=== PATIENT | female | born 1965 | race Caucasian/White ===

== ENCOUNTER → 2017-01-11 | Outpatient (CLI) | payer OTHER ==
--- NOTE | 2017-01-11 12:37 | RAD ---
Indication follow-up lung infiltrate one week ago. Frontal and lateral views of the chest were obtained. No recent examination of the chest is available. Comparison is made to the most recent examination available May 21, 2010. The heart and pulmonary vessels appear normal. The right lung appears clear. There is some minimal linear atelectasis or scar at the left lung base. A definite consolidated pneumonia is not seen. Significant pleural fluid is not seen. There is no pneumothorax. IMPRESSION: Minimal volume loss at the left lung base likely reflecting atelectasis or scar. A definite pneumonic infiltrate is not seen
== END | disposition home or self-care (01) ==
LOC: RAD 12:03
PROVIDERS: ATTEND Internal Medicine
DX: R91.8 Other nonspecific abnormal finding of lung field (principal)
CPT/HCPCS: 71020

== ENCOUNTER → 2017-02-09 | Outpatient (CLI) | payer OTHER ==
--- NOTE | 2017-02-09 16:31 | RAD ---
Pelvic x-rays Indication: Left hip pain radiating to left knee since fall 2.5 weeks ago Technique: AP pelvis and 2 views of the left hip joint Comparison: Study from 09/20/2013 Findings: No acute fracture or dislocation. SI joints within normal limits. No significant evidence of osteoarthritis of the hip joints. Impression: No acute findings.
== END | disposition home or self-care (01) ==
LOC: RAD 14:00
PROVIDERS: ATTEND Internal Medicine
DX: M25.552 Pain in left hip (principal); W19.XXXD Unspecified fall, subsequent encounter
CPT/HCPCS: 73502

== ENCOUNTER → 2017-08-23 | Outpatient (CLI) | payer OTHER | END | disposition home or self-care (01) | LOC: RT 08:06 | DX: G31.84 Mild cognitive impairment of uncertain or unknown etiology (principal) | CPT/HCPCS: 95816 ==

== ENCOUNTER → 2017-11-21 | Outpatient (CLI) | payer OTHER ==
[2017-11-21 12:49] LABS: ANION GAP 10 (6-14); BLOOD UREA NITROGEN 42 mg/dL (7-20); CARBON DIOXIDE 32 mmol/L (21-32); CHLORIDE 102 mmol/L (98-107); CREATININE 1.8 mg/dL (0.6-1.0); GFR 29.3; SODIUM 144 mmol/L (136-145)
[2017-11-21 13:13] LABS: POTASSIUM 2.8 mmol/L (3.5-5.1)
== END | disposition home or self-care (01) ==
LOC: LAB 12:11
DX: G43.709 Chronic migraine without aura, not intractable, without status migrainosus (principal)
CPT/HCPCS: 36415; 80051; 82565; 84520

== ENCOUNTER → 2017-11-21 | Outpatient (CLI) | payer OTHER ==
[2017-11-21 12:34] LABS: ADD MAN DIFF? NO
[2017-11-21 12:48] LABS: ANION GAP 9 (6-14); BASO % 0 % (0-3); BLOOD UREA NITROGEN 42 mg/dL (7-20); CALCIUM 8.8 mg/dL (8.5-10.1); CARBON DIOXIDE 32 mmol/L (21-32); CHLORIDE 102 mmol/L (98-107); CREATININE 1.8 mg/dL (0.6-1.0); EOS % 11 % (0-3); GFR 29.3; GLUCOSE 71 mg/dL (70-99); HEMOGLOBIN 10.1 g/dL (12.0-15.5); LYMPH # 2.2 x10^3/uL (1.0-4.8); LYMPH % 24 % (24-48); MEAN CORPUSCULAR HEMOGLOBIN 31 pg (25-35); MEAN CORPUSCULAR HGB CONC 34 g/dL (31-37); MEAN CORPUSCULAR VOLUME 91 fL (79-100); MONO # 0.5 x10^3/uL (0.0-1.1); MONO % 6 % (0-9); NEUT # 5.4 x10^3uL (1.8-7.7); NEUT % 59 % (31-73); PLATELET COUNT 444 x10^3/uL (140-400); RED BLOOD COUNT 3.32 x10^6/uL (3.50-5.40); RED CELL DISTRIBUTION WIDTH 14.6 % (11.5-14.5); SODIUM 143 mmol/L (136-145); WHITE BLOOD COUNT 9.1 x10^3/uL (4.0-11.0)
[2017-11-21 12:58] LABS: POTASSIUM 2.8 mmol/L (3.5-5.1)
== END | disposition home or self-care (01) ==
LOC: RAD 12:00
DX: M25.552 Pain in left hip (principal)
CPT/HCPCS: 36415; 73502; 80048; 85025

== ENCOUNTER → 2017-11-29 | Outpatient (CLI) | payer OTHER ==
[2017-11-29 14:16] LABS: ANION GAP 12 (6-14); BLOOD UREA NITROGEN 61 mg/dL (7-20); CALCIUM 9.6 mg/dL (8.5-10.1); CARBON DIOXIDE 32 mmol/L (21-32); CHLORIDE 98 mmol/L (98-107); CREATININE 2.1 mg/dL (0.6-1.0); GFR 24.5; GLUCOSE 108 mg/dL (70-99); POTASSIUM 3.1 mmol/L (3.5-5.1); SODIUM 142 mmol/L (136-145)
== END | disposition home or self-care (01) ==
LOC: LAB 13:23
DX: E87.6 Hypokalemia (principal); G43.709 Chronic migraine without aura, not intractable, without status migrainosus
CPT/HCPCS: 36415; 80048

== ENCOUNTER → 2017-12-15 | Outpatient (CLI) | payer OTHER ==
[2017-12-15 15:45] LABS: BASO # 0.1 x10^3/uL (0.0-0.2); BASO % 1 % (0-3); EOS # 0.3 x10^3/uL (0.0-0.7); EOS % 4 % (0-3); HEMATOCRIT 30.7 % (36.0-47.0); HEMOGLOBIN 10.1 g/dL (12.0-15.5); LYMPH # 1.8 x10^3/uL (1.0-4.8); LYMPH % 25 % (24-48); MEAN CORPUSCULAR HEMOGLOBIN 30 pg (25-35); MEAN CORPUSCULAR HGB CONC 33 g/dL (31-37); MEAN CORPUSCULAR VOLUME 90 fL (79-100); MONO # 0.6 x10^3/uL (0.0-1.1); MONO % 8 % (0-9); NEUT # 4.5 x10^3uL (1.8-7.7); NEUT % 62 % (31-73); PLATELET COUNT 339 x10^3/uL (140-400); RED CELL DISTRIBUTION WIDTH 13.8 % (11.5-14.5); WHITE BLOOD COUNT 7.2 x10^3/uL (4.0-11.0)
[2017-12-15 15:59] LABS: ALBUMIN/GLOBULIN RATIO 1.3 (1.0-1.7); CALCIUM 8.8 mg/dL (8.5-10.1); TOTAL BILIRUBIN 0.4 mg/dL (0.2-1.0); TOTAL PROTEIN 7.2 g/dL (6.4-8.2)
[2017-12-15 16:04] LABS: POTASSIUM 2.4 mmol/L (3.5-5.1)
== END | disposition home or self-care (01) ==
LOC: LAB 14:55
PROVIDERS: ATTEND Internal Medicine
DX: F34.1 Dysthymic disorder (principal); E87.6 Hypokalemia
CPT/HCPCS: 36415; 80053; 85025

== ENCOUNTER → 2018-01-05 | Outpatient (CLI) | payer OTHER ==
[2018-01-05 13:04] LABS: CALCIUM 8.8 mg/dL (8.5-10.1); CREATININE 2.5 mg/dL (0.6-1.0); GFR 20.1
[2018-01-05 13:24] LABS: POTASSIUM 2.7 mmol/L (3.5-5.1)
== END | disposition home or self-care (01) ==
LOC: LAB 12:20
PROVIDERS: ATTEND Internal Medicine
DX: N18.3 Chronic kidney disease, stage 3 (moderate) (principal); G43.709 Chronic migraine without aura, not intractable, without status migrainosus
CPT/HCPCS: 36415; 80048

== ENCOUNTER → 2018-01-19 | Outpatient (CLI) | payer OTHER | END | disposition home or self-care (01) | LOC: LAB 13:42 | PROVIDERS: ATTEND Internal Medicine | DX: E87.6 Hypokalemia (principal); M19.232 Secondary osteoarthritis, left wrist; G43.709 Chronic migraine without aura, not intractable, without status migrainosus; N18.3 Chronic kidney disease, stage 3 (moderate) | CPT/HCPCS: 36415; 84132 ==

== ENCOUNTER → 2018-03-05 | Outpatient (CLI) | payer OTHER ==
[2018-03-05 12:09] LABS: CREATININE 2.7 mg/dL (0.6-1.0); GFR 18.4; POTASSIUM 3.1 mmol/L (3.5-5.1)
== END | disposition home or self-care (01) ==
LOC: LAB 11:16
PROVIDERS: ATTEND Psychiatry & Neurology Neurology
DX: G43.709 Chronic migraine without aura, not intractable, without status migrainosus (principal)
CPT/HCPCS: 36415; 80051; 82565; 84520

== ENCOUNTER → 2018-03-09 | Outpatient (CLI) | payer OTHER ==
--- NOTE | 2018-03-14 17:58 | EEG ---
DATE OF SERVICE: 03/09/2018 ELECTROENCEPHALOGRAM NUMBER: [id number]. OBJECTIVE: This is a 52-year-old female patient with history of cognitive functional impairment and confusional episodes. EEG was requested to evaluate cerebral activity and help rule out seizure. METHODS: Twenty electrodes were applied according to the international 10-20 electrode placement system. EKG monitoring, hyperventilation, intermittent photic stimulation, monopolar and bipolar montages are routinely utilized. The record was obtained on a digital system with video monitoring. FINDINGS: 1. Background: The patient was recorded in the awake and drowsy states. No sleep state was recorded. The overall background amplitude is 10-30 microvolts. A posterior dominant rhythm of 8 Hz is observed. 2. Abnormalities: No specific epileptiform discharge or electrographic seizure is seen. No focal or diffuse slowing. 3. Activation: Hyperventilation was performed with good efforts and normal response. Intermittent photic stimulation was performed with photic driving. IMPRESSION: This electroencephalogram is a normal study for the awake and drowsy states. No sleep state was recorded. No focal, lateralizing, specific epileptiform discharge, or electrographic seizure is seen. CONG SOMERS MD DR: KING/eriberto JOB#: [id number] / [id number] JENNIFER
== END | disposition home or self-care (01) ==
LOC: RT 10:58
PROVIDERS: ATTEND Psychiatry & Neurology Neurology
DX: G31.84 Mild cognitive impairment of uncertain or unknown etiology (principal)
CPT/HCPCS: 95816

== ENCOUNTER → 2018-05-10 | Outpatient (CLI) | payer OTHER ==
[2018-05-10 17:11] LABS: FREE T4 1.07 ng/dL (0.76-1.46); THYROID STIM HORMONE (TSH) 2.5 uIU/mL (0.358-3.74)
== END | disposition home or self-care (01) ==
LOC: LAB 15:31
PROVIDERS: ATTEND Otolaryngology
DX: E05.90 Thyrotoxicosis, unspecified without thyrotoxic crisis or storm (principal)
CPT/HCPCS: 36415; 84132; 84439; 84443

== ENCOUNTER → 2018-05-11 | Outpatient (CLI) | payer OTHER ==
[2018-05-11 12:07] LABS: HEMATOCRIT 32.9 % (36.0-47.0); HEMOGLOBIN 11.2 g/dL (12.0-15.5); RED BLOOD COUNT 3.78 x10^6/uL (3.50-5.40)
[2018-05-11 12:23] LABS: ALBUMIN 3.9 g/dL (3.4-5.0); CALCIUM 9.4 mg/dL (8.5-10.1); CREATININE 1.7 mg/dL (0.6-1.0); GFR 31.3; MAGNESIUM 2.2 mg/dL (1.8-2.4); URIC ACID 6.9 mg/dL (2.6-6.0)
[2018-05-11 13:09] LABS: POTASSIUM 2.5 mmol/L (3.5-5.1)
[2018-05-11 16:30] LABS: BILIRUBIN,URINE NEGATIVE (NEG); CLARITY,URINE CLEAR; COLOR,URINE YELLOW; NITRITE,URINE NEGATIVE (NEG); PH,URINE 5.5; PROTEIN,URINE NEGATIVE (NEG-TRACE); UROBILINOGEN,URINE 0.2 mg/dL (0.2 mg/dL)
[2018-05-11 16:54] LABS: BACTERIA,URINE 0 /HPF (0-FEW); HYALINE CASTS, URINE OCCASIONAL /HPF; RBC,URINE 0 /HPF (0-2); SQUAMOUS EPITHELIAL CELL,UR OCC /LPF; WBC,URINE 20-40 /HPF (0-4)
[2018-05-12 07:26] LABS: CALCIUM PTH 9.4 mg/dL (8.7-10.2); CREATININE PTH 1.58 mg/dL (0.57-1.00); PTH INTACT 162 pg/mL (15-65)
== END | disposition home or self-care (01) ==
LOC: LAB 11:37
PROVIDERS: ATTEND Internal Medicine Nephrology
DX: I12.9 Hypertensive chronic kidney disease with stage 1 through stage 4 chronic kidney disease, or unspecified chronic kidney disease (principal); E11.22 Type 2 diabetes mellitus with diabetic chronic kidney disease; N18.3 Chronic kidney disease, stage 3 (moderate); N17.9 Acute kidney failure, unspecified; D63.1 Anemia in chronic kidney disease; E11.21 Type 2 diabetes mellitus with diabetic nephropathy; E55.9 Vitamin D deficiency, unspecified; Z79.1 Long term (current) use of non-steroidal anti-inflammatories (NSAID); Z79.899 Other long term (current) drug therapy; Z68.30 Body mass index [BMI] 30.0-30.9, adult
CPT/HCPCS: 36415; 80069; 81001; 82306; 82570; 83735; 83970; 84156; 84550; 85027; 87086

== ENCOUNTER → 2018-05-14 | Outpatient (CLI) | payer OTHER ==
[2018-05-14 10:58] LABS: ALBUMIN 4.1 g/dL (3.4-5.0); CALCIUM 9.3 mg/dL (8.5-10.1); CREATININE 2.1 mg/dL (0.6-1.0); GFR 24.5; PHOSPHORUS 4.4 mg/dL (2.6-4.7)
== END | disposition home or self-care (01) ==
LOC: LAB 10:08
DX: E87.6 Hypokalemia (principal)
CPT/HCPCS: 36415; 80069

== ENCOUNTER → 2018-05-28 | Outpatient (CLI) | payer OTHER ==
[~2018-05-28] MED LIST: ASPI-630 PO; CLOP75TA PO; CYCL10TA2 PO; ERGO500027 PO; HYDR12.58 PO; LORA1TAB PO; MUPI22OI2 TP; NITR0.4T22 SL; PANT20TA2 PO; POTA20TA82 PO; PRAV20TA2 PO; PROM25TA10 PO; REPA0.5T3 PO; TOPI200T6 PO; TORS20TA2 PO; TRAM50TA PO; VALS160T3 PO
[2018-05-28 17:01] LABS: ALBUMIN 3.9 g/dL (3.4-5.0); CALCIUM 8.8 mg/dL (8.5-10.1); CREATININE 1.9 mg/dL (0.6-1.0); GFR 27.5; PHOSPHORUS 4.3 mg/dL (2.6-4.7)
== END | disposition home or self-care (01) ==
LOC: LAB 16:18
PROVIDERS: ATTEND Internal Medicine
DX: E87.6 Hypokalemia (principal)
CPT/HCPCS: 36415; 80069

== ENCOUNTER 2018-06-14 18:01 | Emergency (ER) | payer OTHER ==
[~2018-06-14] VITALS: Ht 154.9 cm; Wt 76.7 kg
[2018-06-14 18:47] LABS: BASO # 0.1 x10^3/uL (0.0-0.2); BASO % 1 % (0-3); EOS # 0.2 x10^3/uL (0.0-0.7); EOS % 2 % (0-3); HEMATOCRIT 30.9 % (36.0-47.0); HEMOGLOBIN 10.3 g/dL (12.0-15.5); LYMPH # 1.5 x10^3/uL (1.0-4.8); LYMPH % 17 % (24-48); MEAN CORPUSCULAR HEMOGLOBIN 29 pg (25-35); MEAN CORPUSCULAR HGB CONC 33 g/dL (31-37); MEAN CORPUSCULAR VOLUME 88 fL (79-100); MONO # 0.5 x10^3/uL (0.0-1.1); MONO % 5 % (0-9); NEUT # 6.7 x10^3uL (1.8-7.7); NEUT % 75 % (31-73); PLATELET COUNT 355 x10^3/uL (140-400); RED BLOOD COUNT 3.53 x10^6/uL (3.50-5.40); RED CELL DISTRIBUTION WIDTH 13.9 % (11.5-14.5)
[2018-06-14 19:03] LABS: CALCIUM 9.2 mg/dL (8.5-10.1)
[2018-06-14] MEDS ORDERED: POTASSIUM CHLORIDE 20 MEQ TABLET.ER. PO ONE ×2 (19:45→20:00)
[2018-06-14 20:15] VITALS: BP 82/49
[2018-06-14 20:17] LABS: BILIRUBIN,URINE NEGATIVE (NEG); CLARITY,URINE CLOUDY; COLOR,URINE YELLOW; NITRITE,URINE NEGATIVE (NEG); PROTEIN,URINE NEGATIVE (NEG-TRACE); UROBILINOGEN,URINE 0.2 mg/dL (0.2 mg/dL)
--- NOTE | 2018-06-14 20:25 | PHYS DOC ---
Past Medical History Past Medical History: Diabetes-Type II, Hypertension Additional Past Medical Histor: Chronic Kidney Disease Past Surgical History: Appendectomy, Cholecystectomy, Hysterectomy, Tonsillectomy, Other Additional Past Surgical Histo: right arm fx with hardware Alcohol Use: None Drug Use: None Adult General Chief Complaint Chief Complaint: ABNORMAL LABS HPI HPI Patient is a 52 year old female with history of diabetes type 2, hypertension, renal failure, who presents today complaining of hypokalemia. Patient states her blood work was done this morning and the doctor called her informing her her potassium was 2.4. Patient denies any symptoms. PCP Review of Systems Review of Systems Constitutional: Denies fever or chills [] Eyes: Denies change in visual acuity, redness, or eye pain [] HENT: Denies nasal congestion or sore throat [] Respiratory: Denies cough or shortness of breath [] Cardiovascular: Reports hypokalemia. No additional information not addressed in HPI [] GI: Denies abdominal pain, nausea, vomiting, bloody stools or diarrhea [] : Denies dysuria or hematuria [] Musculoskeletal: Denies back pain or joint pain [] Integument: Denies rash or skin lesions [] Neurologic: Denies headache, focal weakness or sensory changes [] All other systems were reviewed and found to be within normal limits, except as documented in this note. Current Medications Current Medications Current Medications Medications (Trade) Dose Ordered Sig/Mau Start Time Stop Time Status Last Admin Dose Admin Potassium Chloride (Klor-Con) 40 meq 1X ONCE 06/14/18 20:00 06/14/18 20:01 DC 06/14/18 20:08 40 MEQ Allergies Allergies Allergies Coded Allergies Type Severity Reaction Last Updated Verified acetaminophen Allergy Severe Face Swelling 05/30/18 Yes gabapentin Allergy Severe Anaphalactic Shock 05/30/18 Yes morphine Allergy Severe Anaphalactic Shock 05/30/18 Yes oxycodone Allergy Severe Face Swelling 05/30/18 Yes metoprolol Allergy Mild Nausea 05/30/18 Yes Physical Exam Physical Exam Constitutional: Well developed, well nourished, no acute distress, non-toxic appearance. [] HENT: Normocephalic, atraumatic, bilateral external ears normal, oropharynx moist, no oral exudates, nose normal. [] Eyes: PERRLA, EOMI, conjunctiva normal, no discharge. [] Neck: Normal range of motion, no tenderness, supple, no stridor. [] Cardiovascular:Heart rate regular rhythm, no murmur [] Lungs & Thorax: Bilateral breath sounds clear to auscultation [] Abdomen: Bowel sounds normal, soft, no tenderness, no masses, no pulsatile masses. [] Skin: Warm, dry, no erythema, no rash. [] Back: No tenderness, no CVA tenderness. [] Extremities: No tenderness, no cyanosis, no clubbing, ROM intact, no edema. [] Neurologic: Alert and oriented X 3, normal motor function, normal sensory function, no focal deficits noted. [] Psychologic: Affect normal, judgement normal, mood normal. [] Current Patient Data Vital Signs Vital Signs Date Time Temp Pulse Resp B/P (MAP) Pulse Ox O2 Delivery O2 Flow Rate FiO2 06/14/18 18:12 98.3 97 20 113/67 (82) 100 Room Air 98.3 Lab Values Laboratory Tests Test 06/14/18 18:33 White Blood Count 9.0 x10^3/uL (4.0-11.0) Red Blood Count 3.53 x10^6/uL (3.50-5.40) Hemoglobin 10.3 g/dL (12.0-15.5) L Hematocrit 30.9 % (36.0-47.0) L Mean Corpuscular Volume 88 fL (79-100) Mean Corpuscular Hemoglobin 29 pg (25-35) Mean Corpuscular Hemoglobin Concent 33 g/dL (31-37) Red Cell Distribution Width 13.9 % (11.5-14.5) Platelet Count 355 x10^3/uL (140-400) Neutrophils (%) (Auto) 75 % (31-73) H Lymphocytes (%) (Auto) 17 % (24-48) L Monocytes (%) (Auto) 5 % (0-9) Eosinophils (%) (Auto) 2 % (0-3) Basophils (%) (Auto) 1 % (0-3) Neutrophils # (Auto) 6.7 x10^3uL (1.8-7.7) Lymphocytes # (Auto) 1.5 x10^3/uL (1.0-4.8) Monocytes # (Auto) 0.5 x10^3/uL (0.0-1.1) Eosinophils # (Auto) 0.2 x10^3/uL (0.0-0.7) Basophils # (Auto) 0.1 x10^3/uL (0.0-0.2) Sodium Level 144 mmol/L (136-145) Potassium Level 3.0 mmol/L (3.5-5.1) L Chloride Level 102 mmol/L (98-107) Carbon Dioxide Level 31 mmol/L (21-32) Anion Gap 11 (6-14) Blood Urea Nitrogen 55 mg/dL (7-20) H Creatinine 2.0 mg/dL (0.6-1.0) H Estimated GFR (Cockcroft-Gault) 26.0 Glucose Level 125 mg/dL (70-99) H Calcium Level 9.2 mg/dL (8.5-10.1) Laboratory Tests 06/14/18 18:33 Laboratory Tests 06/14/18 18:33 EKG EKG [] Radiology/Procedures Radiology/Procedures [] Course & Med Decision Making Course & Med Decision Making Pertinent Labs and Imaging studies reviewed. (See chart for details) This is a 52-year-old female patient presenting to the ED today for hypokalemia. Potassium was 2.4 done early this morning at the doctor's office. Potassium in the ED 3.0. Consulted with Dr. Davis, he requested we give patient 80 mEq of potassium PO and d/c to home f/u with him in the clinic. Discussed dietary k intake. Dragon Disclaimer Dragon Disclaimer This electronic medical record was generated, in whole or in part, using a voice recognition dictation system. Departure Departure Impression: Primary Impression: Hypokalemia Additional Impression: Chronic renal failure Disposition: HOME, SELF-CARE Condition: STABLE Referrals: SAMI DAVIS MD (PCP) follow up as soon as you can Patient Instructions: Hypokalemia Additional Instructions: You were evaluated for hypokalemia, your potassium is 3.0. We gave you potassium in the ED. Increase your dietary potassium intake including foods like bananas. Follow-up with your doctor in the next 1 week. Problem Qualifiers Additional Impression: Chronic renal failure Chronic kidney disease stage: unspecified stage Qualified Codes: N18.9 - Chronic kidney disease, unspecified KELLY WU UNINDENTURED APPRENTICE Jun 14, 2018:25
[2018-06-14 20:33] LABS: BACTERIA,URINE 0 /HPF (0-FEW); HYALINE CASTS, URINE OCCASIONAL /HPF; RBC,URINE 0 /HPF (0-2); SQUAMOUS EPITHELIAL CELL,UR OCC /LPF; WBC,URINE OCC /HPF (0-4)
== END 2018-06-14 20:41 | disposition home or self-care (01) ==
LOC: ER 18:01
DX: E87.6 Hypokalemia (principal); I12.9 Hypertensive chronic kidney disease with stage 1 through stage 4 chronic kidney disease, or unspecified chronic kidney disease; E11.22 Type 2 diabetes mellitus with diabetic chronic kidney disease; N18.9 Chronic kidney disease, unspecified; Z90.89 Acquired absence of other organs; Z90.710 Acquired absence of both cervix and uterus; Z90.49 Acquired absence of other specified parts of digestive tract; Z88.6 Allergy status to analgesic agent; Z88.5 Allergy status to narcotic agent; Z88.8 Allergy status to other drugs, medicaments and biological substances
CPT/HCPCS: 36415; 80048; 81001; 85025; 87086; 99284

== ENCOUNTER 2018-06-19 18:29 | Emergency (ER) | payer MEDICARE, OTHER ==
[~2018-06-19] VITALS: Ht 154.9 cm; Wt 74.8 kg
[2018-06-19 18:55] VITALS: BP 107/69
[2018-06-19 19:38] LABS: INFLUENZA A PATIENT POSITIVE (NEGATIVE); INFLUENZA B PATIENT NEGATIVE (NEGATIVE)
[2018-06-19] MEDS ORDERED: ONDA4TAB12 PO (20:22)
--- NOTE | 2018-06-19 20:23 | PHYS DOC ---
Past Medical History Past Medical History: Diabetes-Type II, Hypertension Additional Past Medical Histor: Chronic Kidney Disease Past Surgical History: Appendectomy, Cholecystectomy, Hysterectomy, Tonsillectomy, Other Additional Past Surgical Histo: right arm fx with hardware Alcohol Use: None Drug Use: None Adult General Chief Complaint Chief Complaint: FLU SYMPTOM HPI HPI Patient is a 52 year old male who presents to the emergency room with complaints of a fever, reactive cough, frequent nosebleeds, nausea, body aches, fatigue, and sore throat for the last week. Patient states the only thing she has been able to tolerate drinking Sprite. States that today she noticed that she started to have some diarrhea stools. Patient denies any vomiting, abdominal pain, back pain, dizziness, or syncope. She states that her primary care doctor sent him here for concerns of dehydration. Review of Systems Review of Systems Constitutional: Reports fever, chills, and body aches for the last week. Eyes: Denies discharge reports redness HENT: Denies ear pain; reports nasal congestion, runny nose, sore throat, frequent nosebleeds. Respiratory: Denies wheezing or shortness of breath; reports productive cough with clear blood streaked sputum [] Cardiovascular: Denies chest pain GI: Denies abdominal pain, or vomiting; reports nausea and diarrhea today Musculoskeletal: Reports body aches Integument: Denies rash or skin lesions [] Neurologic: Denies dizziness, focal weakness or sensory changes [] Allergies Allergies Allergies Coded Allergies Type Severity Reaction Last Updated Verified acetaminophen Allergy Severe Face Swelling 05/30/18 Yes gabapentin Allergy Severe Anaphalactic Shock 05/30/18 Yes morphine Allergy Severe Anaphalactic Shock 05/30/18 Yes oxycodone Allergy Severe Face Swelling 05/30/18 Yes metoprolol Allergy Mild Nausea 05/30/18 Yes Physical Exam Physical Exam Constitutional: Well developed, well nourished, no acute distress, ill appearing HENT: Normocephalic, atraumatic, bilateral external ears normal, oropharynx moist, moist mucous membranes, no oral exudates, nose normal. [] Eyes: PERRLA, conjunctiva injected, no discharge. [] Neck: Normal range of motion, no stridor. [] Cardiovascular:Heart rate regular rhythm, no murmur [] Lungs & Thorax: Bilateral breath sounds clear to auscultation [] Abdomen: Bowel sounds normal, soft, no tenderness, no masses, no pulsatile masses. [] Skin: Warm, dry, no erythema, no rash. [] Extremities: No cyanosis, ROM intact Neurologic: Alert and oriented X 3, normal motor function, normal sensory function, no focal deficits noted. [] Psychologic: Affect normal, judgement normal, mood normal. [] Current Patient Data Vital Signs Vital Signs Date Time Temp Pulse Resp B/P (MAP) Pulse Ox O2 Delivery O2 Flow Rate FiO2 06/19/18 18:55 99.2 68 18 107/69 (82) 99 Room Air 99.2 Lab Values Laboratory Tests Test 06/19/18 18:54 Influenza Type A Antigen Positive (NEGATIVE) Influenza Type B Antigen Negative (NEGATIVE) EKG EKG [] Radiology/Procedures Radiology/Procedures Influenza A was positive Orthostatic blood pressures were negative and patient remained asymptomatic[] Course & Med Decision Making Course & Med Decision Making Pertinent Labs and Imaging studies reviewed. (See chart for details) dx: Influenza a, diarrhea, nausea Prescription was written for [employer]. Patient was encouraged to increase clear fluids including water, broth, Jell-O, popsicles. Advised patient that influenza is a virus that typically last 7-10 days. Follow-up with primary care doctor if symptoms persist, return to the ER if symptoms worsen. Patient verbalized an understanding of home care, medications, follow-up, and return to ED instructions and was in agreement with the plan of care. [] Dragon Disclaimer Dragon Disclaimer This electronic medical record was generated, in whole or in part, using a voice recognition dictation system. Departure Departure Impression: Primary Impression: Influenza A Additional Impressions: Nausea Diarrhea Disposition: 01 HOME, SELF-CARE Condition: STABLE Referrals: SAMI HATHAWAY MD (PCP) Patient Instructions: Influenza A (H1N1), Nausea, Adult, [id number] Additional Instructions: Fill the prescription and use as directed. Increase clear fluids. Follow up with your primary care doctor if symptoms persist, return to the ER if symptoms worsen. Scripts Ondansetron (ONDANSETRON ODT) 4 Mg Tab.rapdis 1 TAB PO PRN Q6-8HRS PRN for NAUSEA/VOMITING, #16 TAB 0 Refills Prov: [employer]Y [employer]Y [employer] 06/19/18 Problem Qualifiers Additional Impressions: Diarrhea Diarrhea type: unspecified type Qualified Codes: R19.7 - Diarrhea, unspecified JUDY SPIVEY APRN Jun 19, 2018 20:23
== END 2018-06-19 20:27 | disposition home or self-care (01) ==
LOC: ER 18:29
DX: J10.1 Influenza due to other identified influenza virus with other respiratory manifestations (principal); R19.7 Diarrhea, unspecified; I12.9 Hypertensive chronic kidney disease with stage 1 through stage 4 chronic kidney disease, or unspecified chronic kidney disease; E11.22 Type 2 diabetes mellitus with diabetic chronic kidney disease; N18.9 Chronic kidney disease, unspecified; Z88.6 Allergy status to analgesic agent; Z88.5 Allergy status to narcotic agent; Z88.8 Allergy status to other drugs, medicaments and biological substances
CPT/HCPCS: 87804; 99283

== ENCOUNTER → 2018-07-17 | Outpatient (CLI) | payer OTHER ==
[2018-06-19 18:55] VITALS: BP 107/69
[~2018-07-17] MED LIST changes: +ONDA4TAB12 PO
--- NOTE | 2018-07-18 19:58 | EEG ---
DATE OF SERVICE: 07/17/2018 ELECTROENCEPHALOGRAM NUMBER: [id number]. OBJECTIVE: This is a 52-year-old female patient with history of cognitive impairment and seizure-like episodes. EEG was requested to help rule out seizure. METHODS: Twenty electrodes were applied according to the international 10-20 electrode placement system. EKG monitoring, hyperventilation, intermittent photic stimulation, monopolar and bipolar montages are routinely utilized. The record was obtained to a digital system with video monitoring. MEDICATION: Topamax. FINDINGS: 1. Background: The patient was recorded in the awake and drowsy states. No actual sleep state was recorded. The overall background amplitude is 10-30 microvolts. A posterior dominant rhythm of 8-10 Hz is observed. 2. Abnormalities: No specific epileptiform discharge or electrographic seizure is seen. No focal or diffuse slowing. 3. Activation: Hyperventilation was performed with good efforts and normal response. Intermittent photic stimulation was performed with photic driving. No specific epileptiform discharge or electrographic seizure induced by hyperventilation or intermittent photic stimulation. IMPRESSION: This electroencephalogram is a normal study for the awake and drowsy states. No actual sleep state was recorded. No focal, lateralizing, specific epileptiform discharge, or electrographic seizure is seen. CONG SOMERS MD DR: KING/eriberto JOB#: [id number] / [id number] JENNIFER
== END | disposition home or self-care (01) ==
LOC: RT 07:49
PROVIDERS: ATTEND Psychiatry & Neurology Neurology
DX: R41.89 Other symptoms and signs involving cognitive functions and awareness (principal)
CPT/HCPCS: 95816

== ENCOUNTER → 2018-07-31 | Outpatient (CLI) | payer OTHER ==
--- NOTE | 2018-07-31 13:10 | RAD ---
EXAM: Chest, 2 views. HISTORY: Pain from coughing. COMPARISON: 01/11/2017. FINDINGS: 2 views of the chest are obtained. There is no infiltrate, pleural effusion or pneumothorax. The heart is normal in size. There is internal fixation of a right humeral diaphyseal fracture. IMPRESSION: No acute pulmonary finding. Electronically signed by: Allegra Marks MD (07/31/2018 1:07 PM) [id number]
[2018-07-31 13:15] LABS: BASO # 0.1 x10^3/uL (0.0-0.2); BASO % 2 % (0-3); EOS # 0.3 x10^3/uL (0.0-0.7); EOS % 6 % (0-3); HEMATOCRIT 30.8 % (36.0-47.0); HEMOGLOBIN 10.1 g/dL (12.0-15.5); LYMPH # 1.1 x10^3/uL (1.0-4.8); LYMPH % 21 % (24-48); MEAN CORPUSCULAR HEMOGLOBIN 31 pg (25-35); MEAN CORPUSCULAR HGB CONC 33 g/dL (31-37); MEAN CORPUSCULAR VOLUME 93 fL (79-100); MONO # 0.5 x10^3/uL (0.0-1.1); MONO % 10 % (0-9); NEUT # 3.3 x10^3uL (1.8-7.7); NEUT % 62 % (31-73); PLATELET COUNT 338 x10^3/uL (140-400); RED CELL DISTRIBUTION WIDTH 18.1 % (11.5-14.5); WHITE BLOOD COUNT 5.4 x10^3/uL (4.0-11.0)
[2018-07-31 13:22] LABS: ALBUMIN 3.6 g/dL (3.4-5.0); CALCIUM 8.7 mg/dL (8.5-10.1); CREATININE 1.2 mg/dL (0.6-1.0); GFR 46.6; POTASSIUM 3.9 mmol/L (3.5-5.1); TOTAL BILIRUBIN 0.2 mg/dL (0.2-1.0); TOTAL PROTEIN 7.1 g/dL (6.4-8.2)
[2018-07-31 13:28] LABS: CHOLESTEROL/HDL RATIO 2.2
[2018-07-31 13:32] LABS: BILIRUBIN,URINE NEGATIVE (NEG); CLARITY,URINE CLEAR; COLOR,URINE YELLOW; NITRITE,URINE NEGATIVE (NEG); PH,URINE 6.5; PROTEIN,URINE NEGATIVE (NEG-TRACE); UROBILINOGEN,URINE 0.2 mg/dL (0.2 mg/dL)
[2018-07-31 13:43] LABS: SQUAMOUS EPITHELIAL CELL,UR FEW /LPF
[2018-07-31 13:44] LABS: BACTERIA,URINE FEW /HPF (0-FEW); RBC,URINE 0 /HPF (0-2)
[2018-07-31 22:13] LABS: CREAT RD UR 21.8 mg/dL (Not Estab.); MICRO CREAT RATIO <13.8 mg/g creat (0.0-30.0); MICROALB RD UR <3.0 ug/mL (Not Estab.)
[2018-07-31 23:10] LABS: HEMOGLOBIN A1C 4.9 % (4.8-5.6)
== END | disposition home or self-care (01) ==
LOC: LAB 12:36
PROVIDERS: ATTEND Internal Medicine
DX: R05 Cough (principal); R07.81 Pleurodynia
CPT/HCPCS: 36415; 71046; 80053; 80061; 81001; 82043; 82306; 82570; 83036; 84443; 85025

== ENCOUNTER → 2018-08-17 | Outpatient (CLI) | payer OTHER ==
--- NOTE | 2018-08-17 13:30 | RAD ---
MRI of the brain without contrast 08/17/2018 Clinical History: Cognitive impairment. Chronic migraines. Technique: Unenhanced T1-weighted sagittal and axial, T2-weighted axial and coronal and FLAIR, gradient echo and diffusion-weighted axial images of the brain were obtained. Findings: Comparison study is dated 12/16/2011. There is mild generalized parenchymal atrophy. Patchy and several small focal areas of increased signal intensity are seen within the periventricular and subcortical white matter of both cerebral hemispheres on the FLAIR and T2-weighted images consistent with areas of very mild small vessel ischemic disease. These have not significantly changed. No acute parenchymal abnormality is seen. No extra-axial fluid collection is seen. There is no MRI evidence of acute ischemia/infarction. Mild mucosal thickening is seen scattered throughout the paranasal sinuses. Normal flow voids are seen within the major vascular structures surrounding the brain parenchyma. Impression: No acute parenchymal abnormality is seen. Electronically signed by: John Vallejo MD (08/17/2018 1:28 PM) [facility]
== END | disposition home or self-care (01) ==
LOC: MRI 10:20
PROVIDERS: ATTEND Psychiatry & Neurology Neurology
DX: G31.84 Mild cognitive impairment of uncertain or unknown etiology (principal); G43.909 Migraine, unspecified, not intractable, without status migrainosus
CPT/HCPCS: 70551

== ENCOUNTER → 2018-08-24 | Outpatient (CLI) | payer OTHER ==
--- NOTE | 2018-08-24 15:12 | KCIC ---
Indication: Postmenopausal screening for osteoporosis. History of adult fracture and diabetes.. Bone Density: -BMD: (g/cm2) - AP Spine Total (L1-L4).......... 0.833. - Total left Hip................. 0.779. T-Score: - AP Spine Total (L1-L4)......... -1.9. - Total left Hip................. -1.3. Z-Score: - AP Spine Total (L1-L4).......... -0.9. - Total left Hip................. -0.7. World Health Organization criteria for BMD interpretation classify patients as Normal (T-score at or above -1.0), Osteopenic (T-score between -1.0 and -2.5), or Osteoporotic (T-score at or below -2.5). Impression: 1. AP Spine Total L1-L4--- osteopenia. 2. Total left Hip--- osteopenia. Electronically signed by: John Mendes MD (08/24/2018 3:09 PM) [facility]
== END | disposition home or self-care (01) ==
LOC: KCIC DEXA 11:48
PROVIDERS: ATTEND Internal Medicine Rheumatology
DX: M85.89 Other specified disorders of bone density and structure, multiple sites (principal); M81.0 Age-related osteoporosis without current pathological fracture; E11.9 Type 2 diabetes mellitus without complications
CPT/HCPCS: 77080

== ENCOUNTER 2018-08-28 08:24 | Outpatient (CLI) | payer OTHER ==
[2018-08-28 08:32] LABS: BASO # 0.1 x10^3/uL (0.0-0.2); BASO % 2 % (0-3); EOS # 0.5 x10^3/uL (0.0-0.7); EOS % 10 % (0-3); HEMATOCRIT 33.4 % (36.0-47.0); HEMOGLOBIN 10.9 g/dL (12.0-15.5); LYMPH # 1.4 x10^3/uL (1.0-4.8); LYMPH % 28 % (24-48); MEAN CORPUSCULAR HEMOGLOBIN 31 pg (25-35); MEAN CORPUSCULAR HGB CONC 33 g/dL (31-37); MEAN CORPUSCULAR VOLUME 95 fL (79-100); MONO # 0.4 x10^3/uL (0.0-1.1); MONO % 8 % (0-9); NEUT # 2.7 x10^3uL (1.8-7.7); NEUT % 52 % (31-73); PLATELET COUNT 283 x10^3/uL (140-400); RED BLOOD COUNT 3.53 x10^6/uL (3.50-5.40); RED CELL DISTRIBUTION WIDTH 15.2 % (11.5-14.5); WHITE BLOOD COUNT 5.1 x10^3/uL (4.0-11.0)
[2018-08-28 08:43] LABS: PROTHROMBIN TIME PATIENT 12.2 SEC (11.7-14.0)
[2018-08-28] MEDS ORDERED: LIDOCAINE WITH 8.4% SOD BICARB 3 ML DISP.SYRIN. INJ ONE (09:15)
[2018-08-28 10:08] VITALS: BP 133/77
[2018-08-28 10:57] LABS: CSF CLARITY CLEAR; CSF COLOR COLORLESS; CSF PROTEIN 41.4 mg/dL (15.0-45.0); CSF RBC COUNT 1 /cmm (Not Established); CSF WBC COUNT 0 /cmm (Not Established)
--- NOTE | 2018-08-28 11:50 | NUR ---
discharge paperwork reviewed with pt. Pt home with family
--- NOTE | 2018-08-28 15:28 | RAD ---
Examination: LUMBAR PUNCTURE History: HEADACHES
FLOURO TIME .5
1 FLOURO IMAGE SENT
OPENING PRESSURE 8
CLOSING PRESSURE 7
10CCS SPINAL FLUID REMOVED
6 CC LIDOCAINE Comparison/Correlation: None Findings: Risks and benefits of fluoroscopically guided lumbar puncture were discussed with the patient. Informed consent was obtained. Fluoroscopy was utilized for 0.5 minutes. Cleansing with Betadine was performed at the L4-5 level. Patient was in the ALBANIAN position. 6 cc 1 percent lidocaine was administered along the expected course of the thecal sac. A 22-gauge spinal needle was introduced into the L4-5 level. 10 cc clear CSF was withdrawn and placed in nearly equal quantity is in 4 vials. Opening CSF pressure of 8 mmHg noted. Closing CSF pressure of 7 mmHg noted. Impression: Successful lumbar puncture exam. CSF pressure is within normal limits. The patient tolerated the procedure well without immediate complications. Specimens sent to the lab. Electronically signed by: North Abel MD (08/28/2018 3:25 PM) [facility]
[2018-08-30 17:09] LABS: HERPES SIMPLEX TYPE 1 Negative (Negative); HERPES SIMPLEX TYPE 2 Negative (Negative)
[2018-09-06 09:19] LABS: VIRAL CULT FINAL No virus isolated. (.)
== END 2018-08-28 11:50 | disposition home or self-care (01) ==
LOC: RAD 08:24
PROVIDERS: ATTEND Psychiatry & Neurology Neurology
DX: G93.2 Benign intracranial hypertension (principal); I10 Essential (primary) hypertension; E11.9 Type 2 diabetes mellitus without complications; J45.909 Unspecified asthma, uncomplicated; Z88.6 Allergy status to analgesic agent; Z88.5 Allergy status to narcotic agent; Z88.8 Allergy status to other drugs, medicaments and biological substances; Z79.01 Long term (current) use of anticoagulants; Z79.82 Long term (current) use of aspirin; Z79.899 Other long term (current) drug therapy; Z79.84 Long term (current) use of oral hypoglycemic drugs
CPT/HCPCS: 36415; 62270; 77003; 82945; 84157; 85025; 85610; 87071; 87075; 87102; 87252; 87529; 89051

== ENCOUNTER → 2018-09-10 | Outpatient (CLI) | payer OTHER ==
[2018-08-28 10:08] VITALS: BP 133/77
[2018-09-10 12:01] LABS: ALBUMIN 3.8 g/dL (3.4-5.0); CALCIUM 9.2 mg/dL (8.5-10.1); CREATININE 1.6 mg/dL (0.6-1.0)
[2018-09-10 12:02] LABS: GFR 33.5; PHOSPHORUS 4.1 mg/dL (2.6-4.7); POTASSIUM 3.1 mmol/L (3.5-5.1)
[2018-09-11 02:08] LABS: CREATININE PTH 1.46 mg/dL (0.57-1.00); PHOSPHORUS PTH 3.9 mg/dL (2.5-4.5); PTH INTACT 86 pg/mL (15-65)
== END | disposition home or self-care (01) ==
LOC: LAB 11:20
PROVIDERS: ATTEND Internal Medicine Nephrology
DX: I12.9 Hypertensive chronic kidney disease with stage 1 through stage 4 chronic kidney disease, or unspecified chronic kidney disease (principal); E11.21 Type 2 diabetes mellitus with diabetic nephropathy; N18.3 Chronic kidney disease, stage 3 (moderate); Z68.30 Body mass index [BMI] 30.0-30.9, adult
CPT/HCPCS: 36415; 80069; 82306; 83970

== ENCOUNTER → 2018-10-31 | Outpatient (CLI) | payer MEDICARE, OTHER ==
[2018-10-31 16:43] LABS: BASO # 0.1 x10^3/uL (0.0-0.2); BASO % 1 % (0-3); EOS # 0.3 x10^3/uL (0.0-0.7); EOS % 4 % (0-3); HEMATOCRIT 36.9 % (36.0-47.0); HEMOGLOBIN 12.3 g/dL (12.0-15.5); LYMPH # 1.9 x10^3/uL (1.0-4.8); LYMPH % 21 % (24-48); MEAN CORPUSCULAR HEMOGLOBIN 30 pg (25-35); MEAN CORPUSCULAR HGB CONC 33 g/dL (31-37); MEAN CORPUSCULAR VOLUME 91 fL (79-100); MONO # 0.5 x10^3/uL (0.0-1.1); MONO % 5 % (0-9); NEUT # 6.1 x10^3uL (1.8-7.7); NEUT % 69 % (31-73); PLATELET COUNT 364 x10^3/uL (140-400); RED BLOOD COUNT 4.05 x10^6/uL (3.50-5.40); RED CELL DISTRIBUTION WIDTH 13.2 % (11.5-14.5); WHITE BLOOD COUNT 8.9 x10^3/uL (4.0-11.0)
--- NOTE | 2018-10-31 16:54 | RAD ---
Examination: 3 views of the right shoulder and 3 views of the right hand HISTORY: History of fall, pain COMPARISON: None available. FINDINGS: The humerus head is within the glenoid. Partially visualized plate and screw fixation of the proximal humerus is identified. The alignment of the metacarpophalangeal joints, interphalangeal grossly appears unremarkable. There is no acute fracture or dislocation identified. IMPRESSION: No acute osseous findings. Electronically signed by: Low Moore MD (10/31/2018 4:51 PM) [facility] [place]
--- NOTE | 2018-10-31 16:54 | RAD ---
Examination: 3 views of the right shoulder and 3 views of the right hand HISTORY: History of fall, pain COMPARISON: None available. FINDINGS: The humerus head is within the glenoid. Partially visualized plate and screw fixation of the proximal humerus is identified. The alignment of the metacarpophalangeal joints, interphalangeal grossly appears unremarkable. There is no acute fracture or dislocation identified. IMPRESSION: No acute osseous findings. Electronically signed by: Low Moore MD (10/31/2018 4:51 PM) [facility]
[2018-10-31 17:13] LABS: ALBUMIN 3.9 g/dL (3.4-5.0); ALBUMIN/GLOBULIN RATIO 1.1 (1.0-1.7); CALCIUM 9.1 mg/dL (8.5-10.1); CREATININE 1.4 mg/dL (0.6-1.0); POTASSIUM 3.2 mmol/L (3.5-5.1); TOTAL BILIRUBIN 0.2 mg/dL (0.2-1.0); TOTAL PROTEIN 7.3 g/dL (6.4-8.2)
[2018-10-31 17:20] LABS: CHOLESTEROL/HDL RATIO 2.8
[2018-11-01 01:12] LABS: CREAT RD UR 92.2 mg/dL (Not Estab.); MICRO CREAT RATIO <3.3 mg/g creat (0.0-30.0); MICROALB RD UR <3.0 ug/mL (Not Estab.)
[2018-11-01 09:14] LABS: HEMOGLOBIN A1C 5.7 % (4.8-5.6)
== END | disposition home or self-care (01) ==
LOC: LAB 15:50
PROVIDERS: ATTEND Internal Medicine
DX: M25.511 Pain in right shoulder (principal); M79.645 Pain in left finger(s); E11.42 Type 2 diabetes mellitus with diabetic polyneuropathy; E55.9 Vitamin D deficiency, unspecified
CPT/HCPCS: 36415; 73030; 73130; 80053; 80061; 82043; 82306; 82570; 83036; 84443; 85025

== ENCOUNTER → 2018-11-30 | Outpatient (CLI) | payer OTHER, MEDICARE ==
[2018-11-30 14:04] LABS: CALCIUM 8.9 mg/dL (8.5-10.1); CREATININE 1.2 mg/dL (0.6-1.0); GFR 46.6; POTASSIUM 3.4 mmol/L (3.5-5.1)
== END | disposition home or self-care (01) ==
LOC: LAB 13:14
PROVIDERS: ATTEND Internal Medicine
DX: I13.0 Hypertensive heart and chronic kidney disease with heart failure and stage 1 through stage 4 chronic kidney disease, or unspecified chronic kidney disease (principal); E11.22 Type 2 diabetes mellitus with diabetic chronic kidney disease; I50.32 Chronic diastolic (congestive) heart failure; N18.3 Chronic kidney disease, stage 3 (moderate); Z79.4 Long term (current) use of insulin
CPT/HCPCS: 36415; 80048

== ENCOUNTER → 2018-12-05 | Outpatient (CLI) | payer OTHER, MEDICARE ==
--- NOTE | 2018-12-05 12:46 | RAD ---
Bilateral lower extremity arterial duplex ultrasound 12/05/2018 INDICATION: Diabetes. Peripheral vascular disease. COMPARISON STUDY: None Discussion: Ultrasound evaluation of the major arteries of the bilateral lower extremity was performed including color Doppler imaging spectral analysis. No significant atherosclerotic vascular disease was identified. No visual flow limiting stenosis, occlusion, or aneurysm is seen. Normal waveform morphology and velocities are seen throughout the major arteries of the bilateral lower extremities. IMPRESSION: Normal sonographic appearance of the major arteries of the bilateral lower extremities. Electronically signed by: Cosme Rodriguez MD (12/05/2018 12:43 PM) [id number]
== END | disposition home or self-care (01) ==
LOC: US 15:57
PROVIDERS: ATTEND Internal Medicine
DX: I73.9 Peripheral vascular disease, unspecified (principal); K21.9 Gastro-esophageal reflux disease without esophagitis; I10 Essential (primary) hypertension; E55.9 Vitamin D deficiency, unspecified; E11.9 Type 2 diabetes mellitus without complications; Z79.82 Long term (current) use of aspirin; Z79.1 Long term (current) use of non-steroidal anti-inflammatories (NSAID); Z79.899 Other long term (current) drug therapy
CPT/HCPCS: 93925

== ENCOUNTER 2018-12-18 23:06 | Emergency (ER) | payer OTHER, MEDICARE ==
[~2018-12-18] VITALS: Ht 154.9 cm; Wt 78.0 kg
--- NOTE | 2018-12-18 23:25 | PHYS DOC ---
Past Medical History Past Medical History: Diabetes-Type II, Hypertension Additional Past Medical Histor: Chronic Kidney Disease Past Surgical History: Appendectomy, Cholecystectomy, Hysterectomy, Tonsillectomy, Other Additional Past Surgical Histo: right arm fx with hardware Alcohol Use: None Drug Use: None Adult General Chief Complaint Chief Complaint: HAND PROBLEM HPI HPI Patient is a 53 year old female with history of diabetes type 2, high blood pressure, who presents to the ED today complaining of right hand and right forearm injury, patient states she was closing a dog gate and her right hand and forearm got slammed by the gait. Review of Systems Review of Systems Constitutional: Denies fever or chills [] Musculoskeletal: Reports right hand and forearm injury Integument: Denies rash or skin lesions [] Neurologic: Denies headache, focal weakness or sensory changes [] All other systems were reviewed and found to be within normal limits, except as documented in this note. Current Medications Current Medications Current Medications Medications (Trade) Dose Ordered Sig/Mau Start Time Stop Time Status Last Admin Dose Admin Diphtheria/ Tetanus/Acell Pertussis (Boostrix) 0.5 ml STK-MED ONCE 12/19/18 00:21 12/19/18 00:21 DC Ketorolac Tromethamine (Toradol Im) 60 mg 1X ONCE 12/19/18 00:30 12/19/18 00:31 Lidocaine/Sodium Bicarbonate (Buffered Lidocaine 1%) 3 ml 1X ONCE 12/19/18 00:30 12/19/18 00:31 Allergies Allergies Allergies Coded Allergies Type Severity Reaction Last Updated Verified acetaminophen Allergy Severe Face Swelling 05/30/18 Yes gabapentin Allergy Severe Anaphalactic Shock 05/30/18 Yes morphine Allergy Severe Anaphalactic Shock 05/30/18 Yes oxycodone Allergy Severe Face Swelling 05/30/18 Yes hydrocodone Adverse Reaction Severe N/V 12/18/18 Yes zolpidem Adverse Reaction Intermediate NAUSEA 12/18/18 Yes metoprolol Adverse Reaction Mild Nausea 12/18/18 Yes Physical Exam Physical Exam Constitutional: Well developed, well nourished, no acute distress, non-toxic appearance. [] Skin: Warm, dry, no erythema, no rash. [] Back: No tenderness, no CVA tenderness. [] Extremities: Right dorsal is to follow-up with moderate soft tissue swelling and bruising, right hand around the index finger middle finger and ring finger knuckles with mild soft tissue swelling and bruising. There is multiple superficial lacerations along the right hand index finger and middle finger. Right index finger proximal end distal aspect with another laceration approximately 1 cm. Pressure dressing applied to the area. No obvious tendon injury to all the lacerations. Patient able to move the right hand and fingers. Adequate radial, medial, ulnar sensation to the right hand. Cap refill less than 2 seconds the right fingers. Neurologic: Alert and oriented X 3, normal motor function, normal sensory function, no focal deficits noted. [] Psychologic: Affect normal, judgement normal, mood normal. [] Current Patient Data Vital Signs Vital Signs Date Time Temp Pulse Resp B/P (MAP) Pulse Ox O2 Delivery O2 Flow Rate FiO2 12/18/18 23:14 98.4 100 20 116/65 (82) 96 Room Air 98.4 EKG EKG [] Radiology/Procedures Radiology/Procedures []PROCEDURE: FOREARM RIGHT Exam: Right forearm 2 views. Right hand 3 views INDICATION: Trauma TECHNIQUE: Frontal and lateral views of the right forearm. Frontal, lateral and oblique views of the right hand Comparisons: None FINDINGS: Forearm: Extensive soft tissue swelling along the dorsal aspect of the distal forearm. Bone mineralization is normal. No acute or healed fractures. Joint spaces are well-maintained. Right hand: Soft tissue irregularity along the radial aspect of the second digit at the level of the proximal phalanx. No radiopaque foreign body. No acute fracture. Interphalangeal joints are narrowed diffusely. IMPRESSION: 1. Extensive soft tissue swelling along the dorsal aspect of the distal right forearm. No underlying osseous abnormality. 2. Soft tissue irregularity along the radial aspect of the second digit at the level of the proximal phalanx. No radiopaque foreign body or acute osseous abnormality identified. Electronically signed by: Ruben Villanueva MD (12/18/2018 11:52 PM) [facility] DICTATED and SIGNED BY: RUBEN VILLANUEVA MD DATE: 12/18/18 2197 PROCEDURE: HAND RIGHT 3V Exam: Right forearm 2 views. Right hand 3 views INDICATION: Trauma TECHNIQUE: Frontal and lateral views of the right forearm. Frontal, lateral and oblique views of the right hand Comparisons: None FINDINGS: Forearm: Extensive soft tissue swelling along the dorsal aspect of the distal forearm. Bone mineralization is normal. No acute or healed fractures. Joint spaces are well-maintained. Right hand: Soft tissue irregularity along the radial aspect of the second digit at the level of the proximal phalanx. No radiopaque foreign body. No acute fracture. Interphalangeal joints are narrowed diffusely. IMPRESSION: 1. Extensive soft tissue swelling along the dorsal aspect of the distal right forearm. No underlying osseous abnormality. 2. Soft tissue irregularity along the radial aspect of the second digit at the level of the proximal phalanx. No radiopaque foreign body or acute osseous abnormality identified. Electronically signed by: Ruben Villanueva MD (12/18/2018 11:52 PM) [facility] DICTATED and SIGNED BY: RUBEN VILLANUEVA MD DATE: 12/18/18 5688 Laceration/Wound Repair Wound Location: Right index finger laceration Wound's Depth, Shape: n shape Wound Length (cm): Approximately 1 cm Wound Explored: clean Irrigated w/ Saline (ccs): 250 Betadine Prep?: Yes Anesthesia: 1% buffered lidocaine Volume Anesthetic (ccs): Approximately 2 mL Wound Repaired With: Dissolvable gut Suture Size/Type: 5.0/interrupted sutures Number of Sutures: 4 Progress- wound was covered with nonstick dressing Course & Med Decision Making Course & Med Decision Making Pertinent Labs and Imaging studies reviewed. (See chart for details) This is a 53-year-old female patient who presents to the ED today with right upper extremity injury. Patient's right hand and right forearm got slammed by a dog gate she has a couple lacerations that appear superficial on the right dorsal hand. Right hand and right forearm x-rays interpreted by radiologist were noted for extensive soft tissue swelling otherwise no acute findings. Right index finger laceration was closed by me as noted in procedures. Wound care instructions and return precautions provided. Tetanus updated. Dragon Disclaimer Dragon Disclaimer This electronic medical record was generated, in whole or in part, using a voice recognition dictation system. Departure Departure Impression: Primary Impression: Contusion of right hand Additional Impressions: Contusion of right forearm Laceration of right hand Laceration of right index finger Disposition: 01 HOME, SELF-CARE Condition: STABLE Referrals: SAMI HATHAWAY MD (PCP) Follow-up with your doctor in 1-2 weeks Patient Instructions: Contusion, [id number], Laceration Care, Adult Additional Instructions: You were evaluated in the emergency room for an injury to the right upper extremity. Your right index finger laceration was closed with dissolvable stitches, they will fall off on their own. Apply Neosporin to the area twice a day. Monitor the area for any signs of infection including but not limited to increased redness, warmth, yellow drainage from the area and return to the ED if they occur. Keep the affected extremity iced and elevated for the next 48 hours as tolerated. Problem Qualifiers Primary Impression: Contusion of right hand Encounter type: initial encounter Qualified Codes: S60.221A - Contusion of right hand, initial encounter Additional Impressions: Contusion of right forearm Encounter type: initial encounter Qualified Codes: S50.11XA - Contusion of right forearm, initial encounter Laceration of right hand Encounter type: initial encounter Foreign body presence: without foreign body Qualified Codes: S61.411A - Laceration without foreign body of right hand, initial encounter Laceration of right index finger Encounter type: initial encounter Damage to nail status: without damage Foreign body presence: unspecified Qualified Codes: S61.210A - Laceration without foreign body of right index finger without damage to nail, initial encounter KELLY WU [employer] Dec 18, 2018 23:25
--- NOTE | 2018-12-18 23:56 | RAD ---
Exam: Right forearm 2 views. Right hand 3 views INDICATION: Trauma TECHNIQUE: Frontal and lateral views of the right forearm. Frontal, lateral and oblique views of the right hand Comparisons: None FINDINGS: Forearm: Extensive soft tissue swelling along the dorsal aspect of the distal forearm. Bone mineralization is normal. No acute or healed fractures. Joint spaces are well-maintained. Right hand: Soft tissue irregularity along the radial aspect of the second digit at the level of the proximal phalanx. No radiopaque foreign body. No acute fracture. Interphalangeal joints are narrowed diffusely. IMPRESSION: 1. Extensive soft tissue swelling along the dorsal aspect of the distal right forearm. No underlying osseous abnormality. 2. Soft tissue irregularity along the radial aspect of the second digit at the level of the proximal phalanx. No radiopaque foreign body or acute osseous abnormality identified. Electronically signed by: Ruben Sweeney MD (12/18/2018 11:52 PM) [facility]
[2018-12-19] MEDS ORDERED: DIPHTH,PERTUSS(ACELL),TET TOX 0.5 ML DISP.SYRIN. VAX IM ONE ×2 (00:21→00:30)
[2018-12-19] MEDS ORDERED: LIDOCAINE WITH 8.4% SOD BICARB 3 ML DISP.SYRIN. INJ ONE (00:30)
[2018-12-19] MEDS ORDERED: KETOROLAC 60 MG/2 ML VIAL. IM ONE (00:30)
[2018-12-19 00:33] VITALS: BP 116/65
== END 2018-12-19 00:40 | disposition home or self-care (01) ==
LOC: ER 23:06
DX: S61.210A Laceration without foreign body of right index finger without damage to nail, initial encounter (principal); S61.212A Laceration without foreign body of right middle finger without damage to nail, initial encounter; S50.11XA Contusion of right forearm, initial encounter; E11.22 Type 2 diabetes mellitus with diabetic chronic kidney disease; I12.9 Hypertensive chronic kidney disease with stage 1 through stage 4 chronic kidney disease, or unspecified chronic kidney disease; N18.9 Chronic kidney disease, unspecified; Z90.89 Acquired absence of other organs; Z90.49 Acquired absence of other specified parts of digestive tract; Z90.710 Acquired absence of both cervix and uterus; Z88.6 Allergy status to analgesic agent; Z88.5 Allergy status to narcotic agent; Z88.8 Allergy status to other drugs, medicaments and biological substances; W23.0XXA Caught, crushed, jammed, or pinched between moving objects, initial encounter; Y93.89 Activity, other specified; Y92.89 Other specified places as the place of occurrence of the external cause; Y99.8 Other external cause status
CPT/HCPCS: 12001; 73090; 73130; 90471; 90715; 96372; 99284; J1885

== ENCOUNTER → 2018-12-27 | Outpatient (CLI) | payer OTHER, MEDICARE ==
[2018-12-19 00:33] VITALS: BP 116/65
== END | disposition home or self-care (01) ==
LOC: LAB 12:24
PROVIDERS: ATTEND Psychiatry & Neurology Neurology
DX: E83.01 Wilson's disease (principal)
CPT/HCPCS: 36415; 82390; 82525; 84630

== ENCOUNTER → 2019-03-15 | Outpatient (CLI) | payer OTHER, MEDICARE ==
[~2019-03-15] MED LIST changes: -REPA0.5T3 PO; +REPA0.5T5 PO
[2019-03-15 12:45] LABS: CREATININE,RANDOM URINE 43.1 mg/dL (Not Establ.)
[2019-03-15 12:48] LABS: ALBUMIN 3.7 g/dL (3.4-5.0); CALCIUM 8.7 mg/dL (8.5-10.1); GFR 57.6; PHOSPHORUS 1.8 mg/dL (2.6-4.7)
[2019-03-15 12:53] LABS: POTASSIUM 4.8 mmol/L (3.5-5.1)
[2019-03-16 03:08] LABS: CREAT RD UR 41.4 mg/dL (Not Estab.); MICRO CREAT RATIO 8.7 mg/g creat (0.0-30.0); MICROALB RD UR 3.6 ug/mL (Not Estab.)
== END | disposition home or self-care (01) ==
LOC: LAB 11:38
PROVIDERS: ATTEND Internal Medicine Nephrology
DX: N18.3 Chronic kidney disease, stage 3 (moderate) (principal); Z68.32 Body mass index [BMI] 32.0-32.9, adult
CPT/HCPCS: 36415; 80069; 82043; 82570; 84156

== ENCOUNTER → 2019-04-26 | Outpatient (CLI) | payer OTHER, MEDICARE ==
[~2019-04-26] MED LIST changes: +POTA20TA4 PO; -POTA20TA82 PO
[2019-04-26 13:29] LABS: CALCIUM 9.3 mg/dL (8.5-10.1); CREATININE 1.5 mg/dL (0.6-1.0); GFR 36.1; PHOSPHORUS 3.1 mg/dL (2.6-4.7); POTASSIUM 3.6 mmol/L (3.5-5.1)
== END | disposition home or self-care (01) ==
LOC: LAB 12:16
PROVIDERS: ATTEND Internal Medicine Nephrology
DX: N17.9 Acute kidney failure, unspecified (principal); I12.9 Hypertensive chronic kidney disease with stage 1 through stage 4 chronic kidney disease, or unspecified chronic kidney disease; N18.3 Chronic kidney disease, stage 3 (moderate); E11.21 Type 2 diabetes mellitus with diabetic nephropathy; E11.22 Type 2 diabetes mellitus with diabetic chronic kidney disease; E87.6 Hypokalemia; E83.30 Disorder of phosphorus metabolism, unspecified; D50.9 Iron deficiency anemia, unspecified; M81.0 Age-related osteoporosis without current pathological fracture; Z68.34 Body mass index [BMI] 34.0-34.9, adult
CPT/HCPCS: 36415; 80069

== ENCOUNTER → 2019-05-24 | Outpatient (CLI) | payer OTHER, MEDICARE ==
[2019-05-24 13:19] LABS: ALBUMIN 3.6 g/dL (3.4-5.0); CALCIUM 9.4 mg/dL (8.5-10.1); CREATININE 1.2 mg/dL (0.6-1.0); GFR 46.6; PHOSPHORUS 3.3 mg/dL (2.6-4.7); POTASSIUM 3.4 mmol/L (3.5-5.1)
== END | disposition home or self-care (01) ==
LOC: LAB 12:17
PROVIDERS: ATTEND Internal Medicine Nephrology
DX: N17.9 Acute kidney failure, unspecified (principal); I12.9 Hypertensive chronic kidney disease with stage 1 through stage 4 chronic kidney disease, or unspecified chronic kidney disease; E11.22 Type 2 diabetes mellitus with diabetic chronic kidney disease; N18.3 Chronic kidney disease, stage 3 (moderate); E11.21 Type 2 diabetes mellitus with diabetic nephropathy; E87.6 Hypokalemia; D50.9 Iron deficiency anemia, unspecified; E55.9 Vitamin D deficiency, unspecified; M81.0 Age-related osteoporosis without current pathological fracture; I48.0 Paroxysmal atrial fibrillation; E83.30 Disorder of phosphorus metabolism, unspecified; Z68.34 Body mass index [BMI] 34.0-34.9, adult
CPT/HCPCS: 36415; 80069

== ENCOUNTER → 2019-05-30 | Outpatient (CLI) | payer OTHER, MEDICARE ==
[~2019-05-30] MED LIST changes: +IOHEXOL 240 MG/ML 50ML VIAL. PO ONE; +IOHEXOL 300 MG/ML 100ML VIAL. IV ONE
--- NOTE | 2019-05-30 14:59 | RAD ---
Examination: CT ABD PELV W/ORAL IV CONTRAST History: Acute diverticulitis, bladder fistula Comparison/Correlation: 05/13/2009 CT abdomen and pelvis with contrast Findings: Axial images of the abdomen and pelvis were obtained following IV and oral contrast. Sagittal and coronal reformatted images were provided. Slightly delayed axial images through the urinary bladder were obtained. Lung bases are clear. Liver, spleen, pancreas, and adrenal glands are normal. Cholecystectomy is evident. Right extrarenal pelvis is present. No hydronephrosis. No hydroureter. Urinary bladder is unremarkable. No enlarged abdominal or pelvic lymph nodes. Retroaortic left renal vein incidentally is seen. No extraluminal gas. No bowel obstruction. Moderate quantity of stool in the colon noted. Mild diverticulosis. Suture material or other opaque density noted involving the right iliac fossa superiorly. Appendix is not identified and this is consistent with history. Hysterectomy noted. Sacralization of the L5 vertebra is noted. Left inferior pubic ring deformity is evident. Correlate with prior trauma history. Impression: No inflammatory changes identified within the pelvis. Urinary bladder is unremarkable with no gas within it to suggest presence of a fistula. No inflammatory findings. Consider further evaluation to shows a persistent concern. Mild diverticulosis without acute inflammatory findings. PQRS Compliance Statement: One or more of the following individualized dose reduction techniques were utilized for this examination: 1. Automated exposure control 2. Adjustment of the mA and/or kV according to patient size 3. Use of iterative reconstruction technique Electronically signed by: North Abel MD (05/30/2019 2:57 PM) [facility]
== END | disposition home or self-care (01) ==
LOC: CT 10:41
PROVIDERS: ATTEND Internal Medicine
DX: K57.92 Diverticulitis of intestine, part unspecified, without perforation or abscess without bleeding (principal); N32.2 Vesical fistula, not elsewhere classified; Z90.49 Acquired absence of other specified parts of digestive tract
CPT/HCPCS: 74177; Q9966; Q9967

== ENCOUNTER → 2019-06-28 | Outpatient (CLI) | payer OTHER, MEDICARE ==
[~2019-06-28] MED LIST changes: -IOHEXOL 240 MG/ML 50ML VIAL. PO ONE; -IOHEXOL 300 MG/ML 100ML VIAL. IV ONE
[2019-06-28 13:24] LABS: CREATININE,RANDOM URINE 60.8 mg/dL (Not Establ.)
[2019-06-28 13:39] LABS: ALBUMIN 3.9 g/dL (3.4-5.0); CALCIUM 9.3 mg/dL (8.5-10.1); CREATININE 1.2 mg/dL (0.6-1.0); GFR 46.6; PHOSPHORUS 3.2 mg/dL (2.6-4.7); POTASSIUM 3.2 mmol/L (3.5-5.1)
[2019-06-28 22:07] LABS: CREATININE PTH 1.21 mg/dL (0.57-1.00); PHOSPHORUS PTH 3.2 mg/dL (3.0-4.3); PTH INTACT 64 pg/mL (15-65)
[2019-06-28 23:08] LABS: CREAT RD UR 60.3 mg/dL (Not Estab.); MICROALB RD UR 3.3 ug/mL (Not Estab.)
== END | disposition home or self-care (01) ==
LOC: LAB 12:41
PROVIDERS: ATTEND Internal Medicine Nephrology
DX: N17.9 Acute kidney failure, unspecified (principal); I12.9 Hypertensive chronic kidney disease with stage 1 through stage 4 chronic kidney disease, or unspecified chronic kidney disease; E11.22 Type 2 diabetes mellitus with diabetic chronic kidney disease; N18.3 Chronic kidney disease, stage 3 (moderate); E11.21 Type 2 diabetes mellitus with diabetic nephropathy; E87.6 Hypokalemia; D50.9 Iron deficiency anemia, unspecified; E55.9 Vitamin D deficiency, unspecified; M81.0 Age-related osteoporosis without current pathological fracture; I48.0 Paroxysmal atrial fibrillation; Z68.34 Body mass index [BMI] 34.0-34.9, adult
CPT/HCPCS: 36415; 80069; 82043; 82306; 82570; 83735; 83970; 84156

== ENCOUNTER → 2019-07-12 | Outpatient (CLI) | payer OTHER, MEDICARE ==
--- NOTE | 2019-07-15 13:43 | EEG ---
DATE OF SERVICE: 07/12/2019 EEG NUMBER: [id number]. OBJECTIVE: This is a 53-year-old female patient with history of memory decline or seizure-like episodes. EEG was requested to help rule out seizure. METHODS: Twenty electrodes were applied according to the international 10-20 electrode placement system. EKG monitoring, hyperventilation, intermittent photic stimulation, monopolar and bipolar montages are routinely utilized. The record was obtained on a digital system with video monitoring. FINDINGS: 1. Background: The patient was recorded in the awake, drowsy, and sleep states. The overall background amplitude is 5-15 microvolts. A posterior dominant rhythm of 8 Hz is observed. 2. Abnormalities: No specific epileptiform discharge or electrographic seizure is seen. No focal or diffuse slowing. 3. Activation: Hyperventilation was performed with fair efforts and normal response. Intermittent photic stimulation was performed with photic driving. No specific epileptiform discharge or electrographic seizure induced by hyperventilation or intermittent photic stimulation. IMPRESSION: This EEG is within the normal limits of the study for the awake, drowsy, and sleep states. No focal, lateralizing, specific epileptiform discharge or electrographic seizure is seen. CONG SOMERS MD DR: KING/eriberto JOB#: [id number] / [id number] JENNIFER
== END | disposition home or self-care (01) ==
LOC: RT 12:38
PROVIDERS: ATTEND Psychiatry & Neurology Neurology
DX: R41.3 Other amnesia (principal)
CPT/HCPCS: 95816

== ENCOUNTER → 2019-07-12 | Outpatient (CLI) | payer OTHER, MEDICARE ==
[2019-07-12 15:38] LABS: BILIRUBIN,URINE NEGATIVE (NEG); CLARITY,URINE CLEAR; COLOR,URINE YELLOW; NITRITE,URINE NEGATIVE (NEG); PH,URINE 6.5; PROTEIN,URINE NEGATIVE (NEG-TRACE); UROBILINOGEN,URINE 0.2 mg/dL (0.2 mg/dL)
[2019-07-12 15:41] LABS: BACTERIA,URINE 0 /HPF (0-FEW); RBC,URINE 0 /HPF (0-2); SQUAMOUS EPITHELIAL CELL,UR FEW /LPF
== END | disposition home or self-care (01) ==
LOC: LAB 14:59
PROVIDERS: ATTEND Internal Medicine Nephrology
DX: N17.9 Acute kidney failure, unspecified (principal); I12.9 Hypertensive chronic kidney disease with stage 1 through stage 4 chronic kidney disease, or unspecified chronic kidney disease; E11.22 Type 2 diabetes mellitus with diabetic chronic kidney disease; N18.3 Chronic kidney disease, stage 3 (moderate); E11.21 Type 2 diabetes mellitus with diabetic nephropathy; E87.6 Hypokalemia; E55.9 Vitamin D deficiency, unspecified; D50.9 Iron deficiency anemia, unspecified; M81.0 Age-related osteoporosis without current pathological fracture; I48.0 Paroxysmal atrial fibrillation; Z68.34 Body mass index [BMI] 34.0-34.9, adult
CPT/HCPCS: 81001; 87086

== ENCOUNTER → 2019-10-14 | Outpatient (CLI) | payer OTHER, MEDICARE ==
[2019-10-14 11:23] LABS: HEMATOCRIT 35.6 % (36.0-47.0); HEMOGLOBIN 11.9 g/dL (12.0-15.5)
[2019-10-14 11:31] LABS: ALBUMIN 3.8 g/dL (3.4-5.0); CALCIUM 8.9 mg/dL (8.5-10.1); CREATININE 1.2 mg/dL (0.6-1.0); GFR 46.5; MAGNESIUM 1.9 mg/dL (1.8-2.4); PHOSPHORUS 2.6 mg/dL (2.6-4.7)
[2019-10-14 11:40] LABS: POTASSIUM 2.9 mmol/L (3.5-5.1)
[2019-10-14 23:08] LABS: CALCIUM PTH 9.5 mg/dL (8.7-10.2); CREATININE PTH 1.13 mg/dL (0.57-1.00); PHOSPHORUS PTH 2.4 mg/dL (3.0-4.3); PTH INTACT 90 pg/mL (15-65)
== END | disposition home or self-care (01) ==
LOC: LAB 10:40
PROVIDERS: ATTEND Internal Medicine Nephrology
DX: I12.9 Hypertensive chronic kidney disease with stage 1 through stage 4 chronic kidney disease, or unspecified chronic kidney disease (principal); N18.3 Chronic kidney disease, stage 3 (moderate); D50.9 Iron deficiency anemia, unspecified; N17.9 Acute kidney failure, unspecified; E11.21 Type 2 diabetes mellitus with diabetic nephropathy; E87.6 Hypokalemia; E55.9 Vitamin D deficiency, unspecified; M81.0 Age-related osteoporosis without current pathological fracture; I48.0 Paroxysmal atrial fibrillation; Z68.34 Body mass index [BMI] 34.0-34.9, adult
CPT/HCPCS: 36415; 80069; 82306; 82728; 83540; 83550; 83735; 83970; 85014; 85018

== ENCOUNTER → 2019-11-22 | Outpatient (CLI) | payer OTHER, MEDICARE ==
[~2019-11-22] MED LIST changes: +ALBU2.5V8 IH; +AMLO5TAB10 PO; +LEVO25TA4 PO; +RIME75TA PO
[2019-11-22 16:19] LABS: CALCIUM 9.2 mg/dL (8.5-10.1); GFR 25.8; POTASSIUM 3.8 mmol/L (3.5-5.1)
== END | disposition home or self-care (01) ==
LOC: LAB 15:01
PROVIDERS: ATTEND Internal Medicine Nephrology
DX: I12.9 Hypertensive chronic kidney disease with stage 1 through stage 4 chronic kidney disease, or unspecified chronic kidney disease (principal); N18.3 Chronic kidney disease, stage 3 (moderate); N17.9 Acute kidney failure, unspecified; E11.21 Type 2 diabetes mellitus with diabetic nephropathy; E11.22 Type 2 diabetes mellitus with diabetic chronic kidney disease; E87.6 Hypokalemia; D50.9 Iron deficiency anemia, unspecified; M81.0 Age-related osteoporosis without current pathological fracture; I48.0 Paroxysmal atrial fibrillation; E83.30 Disorder of phosphorus metabolism, unspecified
CPT/HCPCS: 36415; 80048

== ENCOUNTER → 2019-12-13 | Outpatient (CLI) | payer OTHER, MEDICARE ==
[~2019-12-13] MED LIST changes: -ALBU2.5V8 IH; -AMLO5TAB10 PO; -LEVO25TA4 PO; -RIME75TA PO
== END ==
LOC: LAB 13:45
PROVIDERS: ATTEND Internal Medicine
DX: E87.6 Hypokalemia (principal)
CPT/HCPCS: 36415; 84132

== ENCOUNTER → 2020-01-03 | Outpatient (CLI) | payer OTHER, MEDICARE ==
[2020-01-03 13:37] LABS: CALCIUM 8.6 mg/dL (8.5-10.1); CREATININE 1.3 mg/dL (0.6-1.0); GFR 42.4; POTASSIUM 3.5 mmol/L (3.5-5.1)
== END ==
LOC: LAB 12:56
PROVIDERS: ATTEND Internal Medicine Nephrology
DX: E11.21 Type 2 diabetes mellitus with diabetic nephropathy (principal); E11.22 Type 2 diabetes mellitus with diabetic chronic kidney disease; N18.3 Chronic kidney disease, stage 3 (moderate); E87.6 Hypokalemia
CPT/HCPCS: 36415; 80048

== ENCOUNTER 2020-01-07 17:22 | Inpatient (IN) | payer OTHER, MEDICARE ==
[~2020-01-07] VITALS: Ht 154.9 cm; Wt 87.5 kg
[2020-01-07 17:45] VITALS: BP 120/76
[2020-01-07] MEDS ORDERED: LEVO25TA4 PO (18:10)
[2020-01-07] MEDS ORDERED: RIME75TA PO (18:10)
[2020-01-07] MEDS ORDERED: ALBU2.5V8 IH (18:10)
[2020-01-07] MEDS ORDERED: AMLO5TAB10 PO (18:10)
[2020-01-07] MEDS ORDERED: RIMEGEPANT SULFATE 75 MG PO PRN (18:45)
[2020-01-07] MEDS ORDERED: LORazepam 0.5 MG TABLET PO PRN (18:45)
[2020-01-07] MEDS ORDERED: ALBUTEROL SULFATE 2.5 MG/3 ML NEBU. INH PRN (18:45)
[2020-01-07 19:00] VITALS: BP 103/68
[2020-01-07] MEDS ORDERED: TOPIRAMATE 25 MG TABLET. PO SCH (19:00)
[2020-01-07] MEDS ORDERED: PROMETHAZINE 12.5 MG TABLET. PO PRN (19:00)
[2020-01-07 19:53] LABS: BASO # 0.1 x10^3/uL (0.0-0.2); BASO % 1 % (0-3); EOS # 0.3 x10^3/uL (0.0-0.7); EOS % 4 % (0-3); HEMATOCRIT 28.5 % (36.0-47.0); HEMOGLOBIN 9.6 g/dL (12.0-15.5); LYMPH # 1.2 x10^3/uL (1.0-4.8); LYMPH % 16 % (24-48); MEAN CORPUSCULAR HEMOGLOBIN 30 pg (25-35); MEAN CORPUSCULAR HGB CONC 34 g/dL (31-37); MEAN CORPUSCULAR VOLUME 89 fL (79-100); MONO # 0.5 x10^3/uL (0.0-1.1); MONO % 6 % (0-9); NEUT # 5.5 x10^3/uL (1.8-7.7); NEUT % 72 % (31-73); PLATELET COUNT 269 x10^3/uL (140-400); RED BLOOD COUNT 3.22 x10^6/uL (3.50-5.40); RED CELL DISTRIBUTION WIDTH 14.5 % (11.5-14.5); WHITE BLOOD COUNT 7.6 x10^3/uL (4.0-11.0)
[2020-01-07] MEDS: IV NORMAL SALINE 1000ML BAG 1,000 ML IV SCH (19:57)
[2020-01-07] MEDS: MUPIROCIN 2 % NASAL OINTMENT 22GM TUBE. TP SCH (19:59)
[2020-01-07 20:03] LABS: ALBUMIN 3.2 g/dL (3.4-5.0); ALBUMIN/GLOBULIN RATIO 1.1 (1.0-1.7); CALCIUM 8.5 mg/dL (8.5-10.1); CREATININE 1.3 mg/dL (0.6-1.0); GFR 42.4; POTASSIUM 3.4 mmol/L (3.5-5.1); TOTAL BILIRUBIN 0.3 mg/dL (0.2-1.0)
[2020-01-07] MEDS: ATORVASTATIN CALCIUM 10 MG TABLET. PO SCH (21:04)
[2020-01-07 21:13] LABS: BILIRUBIN,URINE NEGATIVE (NEG); CLARITY,URINE CLEAR; NITRITE,URINE NEGATIVE (NEG); PH,URINE 6.5 (<5.0-8.0); PROTEIN,URINE NEGATIVE (NEG-TRACE); UROBILINOGEN,URINE 0.2 mg/dL (0.2 mg/dL)
[2020-01-07 21:17] LABS: RBC,URINE 0 /HPF (0-2)
[2020-01-07 21:18] LABS: BACTERIA,URINE FEW /HPF (0-FEW); SQUAMOUS EPITHELIAL CELL,UR MOD /LPF
[2020-01-07 21:19] LABS: COLOR,URINE STRAW
[2020-01-07] MEDS: TOPIRAMATE 25 MG TABLET. PO SCH (21:22)
[2020-01-07 23:00] VITALS: BP_SYST 103; BP_SYST 158; BP_DIAS 68; BP_DIAS 79
[2020-01-08 03:00] VITALS: BP 110/71
[2020-01-08] MEDS: LEVOTHYROXINE 25 MCG TABLET. PO SCH (05:45)
[2020-01-08] MEDS: TOPIRAMATE 25 MG TABLET. PO SCH ×2 (05:46→21:12)
[2020-01-08 07:00] VITALS: BP 109/71
[2020-01-08] MEDS: INSULIN LISPRO 300 UNITS/3 ML VIAL. SQ SCH ×3 (08:00→17:00)
--- NOTE | 2020-01-08 08:58 | PDOC ---
Provider Note Date of Service: DATE: 01/08/20 TIME: 08:57 Provider Note Pt seen.H&P dictated.#[id number]. Justifications for Admission Other Justification SAMI HATHAWAY MD Jan 08, 2020 08:58
--- NOTE | 2020-01-08 09:26 | HP ---
ADMIT DATE: 01/08/2020 LOCATION: 510. REASON FOR ADMISSION TO THE HOSPITAL: Multiple falls over the weekend at least 4-5 times, generalized weakness, lethargy and decline in the patient's condition. HISTORY OF PRESENT ILLNESS: The patient is a 54-year-old female. The patient has a history of abnormal copper metabolism, Amarjit disease, has seen Dr. Parker in Neurology in the past and she also has anxiety, depression, has diabetes, hypertension, anemia, chronic kidney disease. She is usually ambulating with a cane. She has a couple of fractures last year on the shoulder and elbow. She looked pretty good, but she has been having more weakness recently. She fell 4-5 times over the weekend and she has been pretty lethargic. The patient was seen in the office, was admitted for further investigation and treatments. Probably, she may end up going to nursing home at a rehab. PAST MEDICAL HISTORY: As mentioned, she has a history of diabetes, hypertension, chronic kidney disease, anemia, Amarjit disease and early dementia. PAST SURGICAL HISTORY: Fracture of the right humerus. FAMILY HISTORY: For diabetes and heart disease in the grandparents. ALLERGIES: TO TYLENOL, GABAPENTIN, HYDROCODONE, METOPROLOL, MORPHINE, OXYCODONE, AMBIEN. MEDICATIONS AT HOME: The patient is taking cyclobenzaprine 20 mg at bedtime; lorazepam 1 mg at bedtime; albuterol ProAir 2 puffs 4 times daily; amlodipine 5 mg daily; aspirin 81 mg daily; Plavix 75 mg daily; vitamin D once a week 50,000; hydrochlorothiazide 12.5, levothyroxine 25 mcg daily; pantoprazole 40 mg daily; pravastatin 20 mg daily; promethazine for nausea. She is on Topamax 200 mg twice a day; Diovan 160 mg daily. She is on rimegepant 75 mg p.r.n. for migraines. PERSONAL HISTORY: Denies smoking, alcohol, drug abuse. FAMILY HISTORY: As above. PHYSICAL EXAMINATION: GENERAL: The patient has early-onset dementia, does not remember . VITAL SIGNS: Temperature 97, pulse 80, respirations 18, blood pressure 103/68, 95 on room air. HEENT: Head is atraumatic. Pupils equal. Oral cavity: No congestion. NECK: Supple. Thyroid not enlarged. JVD not elevated. CHEST: Symmetrical. CARDIOVASCULAR: S1, S2. LUNGS: Clear. ABDOMEN: Soft, bowel sounds present, no mass palpable. EXTERNAL GENITALIA: No Hernandez. RECTAL: Deferred. EXTREMITIES: No calf tenderness. No edema. The patient has bruising on the inner thigh, left, from falls. NEUROLOGICAL: The patient is oriented to place, person and not to the time. Moving upper and lower extremities, but weak in lower extremities. LABORATORY DATA: Shows a white count of 7, hemoglobin 9.6, platelets 269. Electrolytes show sodium 146, potassium 3.4, chloride 112, bicarb 25, BUN 27, creatinine 1.3, glucose 64. LFTs were normal. Urine was normal. CT head was ordered, but it was not done. Chest x-ray was not done. FINAL IMPRESSION: 1. Recurrent falls, especially her 4 falls over the weekend. The patient was lethargic in the office. 2. Amarjit disease. 3. Hypertension. 4. Hyperlipidemia. 5. Hypothyroidism. 6. Early-onset dementia. PLAN: At this time, was admitted to the hospital. Probably, needs Neurology as well as rehab. May end up going to other rehab unit or a nursing home until her strength improves. PT/OT and once we get the CT, if there is no bleeding, we can give Lovenox for DVT prevention. SAMI HATHAWAY MD DR: IVONNE/eriberto JOB#: [id number] / [id number]
--- NOTE | 2020-01-08 10:50 | PDOC2 ---
NEUROLOGY CONSULT Date of Service DOS: DATE: 01/08/20 TIME: 10:35 Reason for Consult Reason for Consult: Weakness and falls Referring Physician Referring Physician: Dr. Davis Source Source: Chart review, Patient History of Present Illness History of Present Illness The patient is a 54-year-old right-handed female who has had increasing weakness and falls. Dr. Parker has been following her for 8 years for migraine headaches. 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 Dr. Parker checked zinc copper, ceruloplasmin, on 12/27/18, these were normal. Patient has had a gradual decline in function, with development of tremors. The patient has never had a seizure, or head injury. She had a stroke in 2016. More recently the patient has seen my nurse practitioner, Ms. Verduzco. We have discussed the case and made a referral to neurology, appointment pending Past Medical History Cardiovascular: HTN, Hyperlipidemia CENTRAL NERVOUS SYSTEM: Migraine, Seizure, Other (Possible Amarjit's disease, left foot drop) Renal/: Chronic renal insuff, Urinary Incontinence Endocrine: Diabetes, Other ( thyroid nodule) Past Surgical History Past Surgical History: Cholecystectomy, Tonsillectomy, Hysterectomy, Other ( cyst removal from cost 6, left breast biopsy, liver biopsy, hand surgery times 5, dental surgery, right humerus fracture, cardiac catheterization, bladder surgery) Family History Family History: Cancer, Other ( hepatitis) Social History Social History /, no alcohol or tobacco, unemployed Current Medications Current Medications Current Medications Albuterol Sulfate (Ventolin Neb Soln) 2 mg PRN Q4HRS PRN INH wheezing; Start 01/07/20 at 18:45 Amlodipine Besylate (Norvasc) 5 mg DAILY PO ; Start 01/08/20 at 09:00 Aspirin (Aspirin Chewable) 81 mg DAILY PO ; Start 01/08/20 at 09:00 Clopidogrel Bisulfate (Plavix) 75 mg DAILY PO ; Start 01/08/20 at 09:00 Ergocalciferol (Vitamin D2) 50,000 unit WEEKLY PO ; Start 01/14/20 at 09:00 Levothyroxine Sodium (Synthroid) 25 mcg DAILY06 PO Last administered on 01/08/20at 05:45; Start 01/08/20 at 06:00 Mupirocin (Bactroban) 1 lyndsey BID TP ; Start 01/07/20 at 21:00 Hydrochlorothiazide (Hydrodiuril) 25 mg DAILY PO ; Start 01/08/20 at 09:00 Pantoprazole Sodium (Protonix) 40 mg DAILYAC PO ; Start 01/08/20 at 07:30 Atorvastatin Calcium (Lipitor) 10 mg QHS PO Last administered on 01/07/20at 21:04; Start 01/07/20 at 21:00 Promethazine HCl (Phenergan) 25 mg PRN Q12HRS PRN PO NAUSEA/VOMITING; Start 01/07/20 at 19:00 Non-Formulary Medication (Rimegepant Sulfate (Nurtec Odt)) 75 mg PRN DAILY PRN PO MIGRAINE HEADACHE; Start 01/07/20 at 18:45; Status UNV Topiramate (Topamax) 75 mg BID PO ; Start 01/07/20 at 19:00; Stop 01/07/20 at 18:48; Status DC Losartan Potassium (Cozaar) 100 mg DAILY PO ; Start 01/08/20 at 09:00 Lorazepam (Ativan) 0.5 mg PRN QHS PRN PO ANXIETY / AGITATION; Start 01/07/20 at 18:45 Sodium Chloride 1,000 ml @ 75 mls/hr [id number] IV Last administered on 01/07/20at 19:57; Start 01/07/20 at 18:45 Insulin Human Lispro (HumaLOG) 0-5 UNITS TIDWMEALS SQ ; Start 01/08/20 at 08:00 Dextrose (Dextrose 50%-Water Syringe) 12.5 gm PRN Q15MIN PRN IV SEE COMMENTS; Start 01/07/20 at 18:45 Topiramate (Topamax) 75 mg Q12H PO Last administered on 01/08/20at 05:46; Start 01/07/20 at 19:00 Active Scripts Active Reported Levothyroxine Sodium 25 Mcg Tablet 1 Tab PO DAILY Amlodipine Besylate 5 Mg Tablet 5 Mg PO DAILY Proair Hfa (Albuterol Sulfate) 8.5 Gm Hfa.aer.ad 2 Puff IH PRN Q4-6HRS PRN 21 Days Nurtec Odt (Rimegepant Sulfate) 75 Mg Tab.rapdis 75 Mg PO PRN DAILY PRN Vitamin D2 (Ergocalciferol (Vitamin D2)) 50,000 Unit Capsule 1 Cap PO WEEKLY Pravastatin Sodium 20 Mg Tablet 2 Tab PO DAILY Mupirocin Ointment (Mupirocin) 22 Gm Oint...g. 1 Lyndsey TP BID Clopidogrel (Clopidogrel Bisulfate) 75 Mg Tablet 1 Tab PO DAILY Topiramate 200 Mg Tablet 75 Mg PO BID Lorazepam 1 Mg Tablet 1 Mg PO HS Promethazine Hcl 25 Mg Tablet 25 Mg PO BID PRN Cyclobenzaprine Hcl 10 Mg Tablet 20 Mg PO HS Diovan (Valsartan) 160 Mg Tablet 320 Mg PO DAILY Protonix (Pantoprazole Sodium) 20 Mg Tablet.dr 40 Mg PO DAILY Hydrochlorothiazide Tablet (Hydrochlorothiazide) 12.5 Mg Tablet 25 Mg PO DAILY Aspirin 81 Mg Tab.chew 1 Tab PO DAILY Allergies Allergies: Coded Allergies: acetaminophen (Verified Allergy, Severe, Face Swelling, 05/30/18) gabapentin (Verified Allergy, Severe, Anaphalactic Shock, 05/30/18) morphine (Verified Allergy, Severe, Anaphalactic Shock, 05/30/18) oxycodone (Verified Allergy, Severe, Face Swelling, 05/30/18) hydrocodone (Verified Adverse Reaction, Severe, N/V, 12/18/18) zolpidem (Verified Adverse Reaction, Intermediate, NAUSEA, 12/18/18) metoprolol (Verified Adverse Reaction, Mild, Nausea, 12/18/18) ROS Review of System Negative for fever, chills, weight loss, shortness of breath, chest pain, in digestion, hematochezia, melena, and dysuria. Full 14-point review of systems is negative. Physical Exam Physical Examination General: Well-developed, well-nourished white female in no acute distress HEENT: Normocephalic andatraumatic. Temporal arteriespulsatile and nontender. Neck: Supple without bruit, no meningismus Musculoskeletal: Stability:see neurologic. Gait exam:see neurologic. Tone:see neurologic.Strength:see neurologic. Neurological: Mental Status:orientation, memory, attention span/concentration, language, fund of knowledge: knows date and location, a little unclear on history. Cranial Nerves:Pupils equal and reactive to light, extraocular movements areintact, visual bhakta are full to confrontation. Facial sensation is normal. There is no facial asymmetry. Vestibulo-ocular reflex is intact. Palate elevates and tongue protrudes in midline. All other cranial related problems are negative except as mentioned before.Reflexes:1+ and symmetric with flexor plantar responses. Motor:5/5 strength with normal tone and bulk. Coordination:Finger-nose finger and uvls-ro-oqep testing are normal. Rapid alternating movements and fine finger movements are intact. Mild postural tremor. Gait: unsteady. Sensory: diffuse hypesthesia Vitals VITALS Vital Signs Date Time Temp Pulse Resp B/P (MAP) Pulse Ox O2 Delivery O2 Flow Rate FiO2 01/08/20 07:00 97.6 72 16 109/71 (84) 97 Room Air 97.6 Labs Labs Laboratory Tests Test 01/07/20 19:27 01/07/20 19:30 01/07/20 20:20 01/07/20 20:54 Sodium Level 146 mmol/L (136-145) Potassium Level 3.4 mmol/L (3.5-5.1) Chloride Level 112 mmol/L (98-107) Carbon Dioxide Level 25 mmol/L (21-32) Anion Gap 9 (6-14) Blood Urea Nitrogen 27 mg/dL (7-20) Creatinine 1.3 mg/dL (0.6-1.0) Estimated GFR (Cockcroft-Gault) 42.4 BUN/Creatinine Ratio 21 (6-20) Glucose Level 64 mg/dL (70-99) Calcium Level 8.5 mg/dL (8.5-10.1) Total Bilirubin 0.3 mg/dL (0.2-1.0) Aspartate Amino Transf (AST/SGOT) 36 U/L (15-37) Alanine Aminotransferase (ALT/SGPT) 42 U/L (14-59) Alkaline Phosphatase 93 U/L (46-116) Total Protein 6.0 g/dL (6.4-8.2) Albumin 3.2 g/dL (3.4-5.0) Albumin/Globulin Ratio 1.1 (1.0-1.7) White Blood Count 7.6 x10^3/uL (4.0-11.0) Red Blood Count 3.22 x10^6/uL (3.50-5.40) Hemoglobin 9.6 g/dL (12.0-15.5) Hematocrit 28.5 % (36.0-47.0) Mean Corpuscular Volume 89 fL (79-100) Mean Corpuscular Hemoglobin 30 pg (25-35) Mean Corpuscular Hemoglobin Concent 34 g/dL (31-37) Red Cell Distribution Width 14.5 % (11.5-14.5) Platelet Count 269 x10^3/uL (140-400) Neutrophils (%) (Auto) 72 % (31-73) Lymphocytes (%) (Auto) 16 % (24-48) Monocytes (%) (Auto) 6 % (0-9) Eosinophils (%) (Auto) 4 % (0-3) Basophils (%) (Auto) 1 % (0-3) Neutrophils # (Auto) 5.5 x10^3/uL (1.8-7.7) Lymphocytes # (Auto) 1.2 x10^3/uL (1.0-4.8) Monocytes # (Auto) 0.5 x10^3/uL (0.0-1.1) Eosinophils # (Auto) 0.3 x10^3/uL (0.0-0.7) Basophils # (Auto) 0.1 x10^3/uL (0.0-0.2) Urine Collection Type Unknown Urine Color Straw Urine Clarity Clear Urine pH 6.5 (<5.0-8.0) Urine Specific [place] 1.010 (1.000-1.030) Urine Protein Negative mg/dL (NEG-TRACE) Urine Glucose (UA) Negative mg/dL (NEG) Urine Ketones (Stick) Negative mg/dL (NEG) Urine Blood Negative (NEG) Urine Nitrite Negative (NEG) Urine Bilirubin Negative (NEG) Urine Urobilinogen Dipstick 0.2 mg/dL (0.2 mg/dL) Urine Leukocyte Esterase Trace (NEG) Urine RBC 0 /HPF (0-2) Urine WBC 1-4 /HPF (0-4) Urine Squamous Epithelial Cells Mod /LPF Urine Bacteria Few /HPF (0-FEW) Glucose (Fingerstick) 61 mg/dL (70-99) Test 01/07/20 21:48 Glucose (Fingerstick) 80 mg/dL (70-99) Laboratory Tests Test 01/07/20 19:27 01/07/20 19:30 01/07/20 20:20 01/07/20 20:54 Sodium Level 146 mmol/L (136-145) Potassium Level 3.4 mmol/L (3.5-5.1) Chloride Level 112 mmol/L (98-107) Carbon Dioxide Level 25 mmol/L (21-32) Anion Gap 9 (6-14) Blood Urea Nitrogen 27 mg/dL (7-20) Creatinine 1.3 mg/dL (0.6-1.0) Estimated GFR (Cockcroft-Gault) 42.4 BUN/Creatinine Ratio 21 (6-20) Glucose Level 64 mg/dL (70-99) Calcium Level 8.5 mg/dL (8.5-10.1) Total Bilirubin 0.3 mg/dL (0.2-1.0) Aspartate Amino Transf (AST/SGOT) 36 U/L (15-37) Alanine Aminotransferase (ALT/SGPT) 42 U/L (14-59) Alkaline Phosphatase 93 U/L (46-116) Total Protein 6.0 g/dL (6.4-8.2) Albumin 3.2 g/dL (3.4-5.0) Albumin/Globulin Ratio 1.1 (1.0-1.7) White Blood Count 7.6 x10^3/uL (4.0-11.0) Red Blood Count 3.22 x10^6/uL (3.50-5.40) Hemoglobin 9.6 g/dL (12.0-15.5) Hematocrit 28.5 % (36.0-47.0) Mean Corpuscular Volume 89 fL (79-100) Mean Corpuscular Hemoglobin 30 pg (25-35) Mean Corpuscular Hemoglobin Concent 34 g/dL (31-37) Red Cell Distribution Width 14.5 % (11.5-14.5) Platelet Count 269 x10^3/uL (140-400) Neutrophils (%) (Auto) 72 % (31-73) Lymphocytes (%) (Auto) 16 % (24-48) Monocytes (%) (Auto) 6 % (0-9) Eosinophils (%) (Auto) 4 % (0-3) Basophils (%) (Auto) 1 % (0-3) Neutrophils # (Auto) 5.5 x10^3/uL (1.8-7.7) Lymphocytes # (Auto) 1.2 x10^3/uL (1.0-4.8) Monocytes # (Auto) 0.5 x10^3/uL (0.0-1.1) Eosinophils # (Auto) 0.3 x10^3/uL (0.0-0.7) Basophils # (Auto) 0.1 x10^3/uL (0.0-0.2) Urine Collection Type Unknown Urine Color Straw Urine Clarity Clear Urine pH 6.5 (<5.0-8.0) Urine Specific [place] 1.010 (1.000-1.030) Urine Protein Negative mg/dL (NEG-TRACE) Urine Glucose (UA) Negative mg/dL (NEG) Urine Ketones (Stick) Negative mg/dL (NEG) Urine Blood Negative (NEG) Urine Nitrite Negative (NEG) Urine Bilirubin Negative (NEG) Urine Urobilinogen Dipstick 0.2 mg/dL (0.2 mg/dL) Urine Leukocyte Esterase Trace (NEG) Urine RBC 0 /HPF (0-2) Urine WBC 1-4 /HPF (0-4) Urine Squamous Epithelial Cells Mod /LPF Urine Bacteria Few /HPF (0-FEW) Glucose (Fingerstick) 61 mg/dL (70-99) Test 01/07/20 21:48 Glucose (Fingerstick) 80 mg/dL (70-99) Images Images Her brain MRI w/o contrast (renal failure no contrast) on 08/17/18 was unremarkable. 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 Her brain MRI and MRA on 08/05/15 were normal. Her EEG on 08/23/17 was a normal study. Her LP on 08/28/18 showed CSF opening pressure 8 and closing pressure 7. CSF lab studies WNL. 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 Gait disorder Peripheral neuropathy History of migraine headaches History of stroke Recommendations: Recheck Amarjit's studies MRI of the brain Rehabilitation modalities Additional laboratory studies Consider transfer to , most likely this would best be accomplished in the outpatient setting, as there is no emergency. Discussed with Dr. Davis Thank you for letting me help with the patient's care. MALLORIE NOLASCO MD Jan 08, 2020 10:50
[2020-01-08] MEDS: CLOPIDOGREL BISULFATE 75 MG TABLET PO SCH (10:51)
[2020-01-08] MEDS: hydroCHLOROthiazide 25 MG TABLET PO SCH (10:51)
[2020-01-08] MEDS: PANTOPRAZOLE 40 MG TABLET.DR. PO SCH (10:51)
[2020-01-08] MEDS: LOSARTAN POTASSIUM 50 MG TABLET. PO SCH (10:52)
[2020-01-08] MEDS: ASPIRIN CHEWABLE 81 MG TABLET. PO SCH (10:52)
[2020-01-08] MEDS: amLODIPine BESYLATE 5 MG TABLET PO SCH (10:53)
[2020-01-08] MEDS: MUPIROCIN 2 % NASAL OINTMENT 22GM TUBE. TP SCH ×2 (10:54→20:15)
[2020-01-08] MEDS: IV NORMAL SALINE 1000ML BAG 1,000 ML IV SCH (10:55)
[2020-01-08 11:00] VITALS: BP 142/85
--- NOTE | 2020-01-08 11:11 | RAD ---
EXAM: CHEST AP ONLY, BRAIN W/O CONTRAST INDICATION: Reason: recent pneumonia - / Spl. Instructions: / History: . TECHNIQUE: Single view COMPARISON: Abdomen pelvis CT with IV contrast 05/30/2019 FINDINGS: The heart size is normal. The great vessels appear unremarkable. No hilar mass is apparent. There is asymmetric fullness of the right suprahilar mediastinum of uncertain significance. It could represent a prominent ascending thoracic aorta. The lungs show subtle reticular densities at the left lung base and otherwise are clear. There is no pleural effusion or pneumothorax. There are no acute osseous abnormalities. Plate and screw fixation of a right humeral shaft fracture with apparent good osseous healing in the visualized portion is present. IMPRESSION: Minimal reticular densities in the left costophrenic angle, potentially reflecting resolving pneumonia or atelectasis. Otherwise no acute cardiopulmonary process. EXAM: MRI Brain without IV contrast INDICATION: Memory loss and falls, 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 TECHNIQUE: Sagittal and axial T1-w and axial T2-w, FLAIR, GRE, coronal T2-w, and diffusion-w images of the brain with ADC maps without IV contrast. COMPARISON: MRI brain with and without IV contrast of 12/16/2011. Abdomen and pelvis CT with IV contrast of 05/30/2019. FINDINGS: BRAIN PARENCHYMA: No evidence of hyperacute, acute, or early subacute infarction. Tiny, punctate focus of FLAIR signal hyperintensity in the right inferior cerebellar white matter could reflect leucoariosis or artifact. Otherwise, no abnormal parenchymal signal or mass. In particular, there is no abnormal T1 shortening in the deep romano nuclei or evidence of susceptibility artifact as might be expected with copper accumulation. VENTRICLES & EXTRA-AXIAL SPACES: Ventricles are within normal limits. Basilar cisterns are patent. No abnormal extra-axial fluid or mass. VESSELS: Normal signal voids in the larger intracranial vessels. ORBITS: Orbital contents are unremarkable. SINUSES: Paranasal sinuses are clear. Tympanic cavities and mastoid air cells are clear. OSSEOUS & SOFT TISSUES: Marrow signal is within normal limits. IMPRESSION: Unremarkable MRI of the brain without contrast. Electronically signed by: Domi Weiss MD (01/08/2020 11:08 AM) [id number]
[2020-01-08] MEDS: DEXTROSE 50% 25 GM / 50ML DISP.SYRIN. IV PRN ×2 (11:59→16:56)
--- NOTE | 2020-01-08 12:40 | NUR ---
patient glucose was 46. apple juice given by ALUMNI SECRETARY. RN admin 1 amp dextrose. recheck was 234
[2020-01-08 15:00] VITALS: BP 126/81
--- NOTE | 2020-01-08 16:47 | NUR ---
SW following. ADRIAN referred to assist with discharge planning to either SNU or acute rehab. Pt from home with spouse. Pt on room air. Neurology consulted. Pt having increased weakness and falls at home. PT/OT recommendation is for acute rehab. Spoke with pt to discuss differences in SNU and acute rehab. Pt would prefer acute rehab and stated no preference in provider. ADRIAN completed patient choice of vendor form. ADRIAN faxed referral to [facility] for acute rehab. Pt has [employer] insurance. ADRIAN following. Addendum: 01/08/20 at 1652 by RITA CAMPBELL ADRIAN requested COVID test from Dr. Davis.
--- NOTE | 2020-01-08 17:00 | NUR ---
dinner glucose 58. 0.5 amp dextrose given. pt states "it has been low at home but i just havent told my doctor"
[2020-01-08 19:00] VITALS: BP 117/87
[2020-01-08] MEDS: ATORVASTATIN CALCIUM 10 MG TABLET. PO SCH (20:15)
[2020-01-08 23:00] VITALS: BP 121/75
--- NOTE | 2020-01-08 23:21 | CONS ---
DATE OF CONSULTATION: 01/08/2020 ATTENDING PHYSICIAN: Rai Davis M.D. REASON FOR CONSULTATION: The patient was seen at the request of Dr. Davis for rehab evaluation. HISTORY OF PRESENT ILLNESS: This is a 54-year-old female being followed by Dr. Parker and Dr. Foley with questionable abnormal copper metabolism worked up for Amarjit's disease. Also with known anxiety, depression, diabetes mellitus, hypertension, anemia and chronic kidney disease. She usually walks using a cane. She sustained fractures last year on her shoulders and elbow. The patient has been having increasing weakness recently. She apparently fell about 3-5 times over the last weekend and has been pretty lethargic, was seen in the office by Dr. Davis and was admitted for further evaluation and treatment. PAST MEDICAL HISTORY: Also includes early dementia. She lives with her who works during the daytime. She had many stairs for her to manage to enter the house from the [facility] basement where washer and dryer are located. No railing. MEDICATIONS: Apparently, the patient has been taking gabapentin, hydrocodone, metoprolol, morphine, oxycodone and Ambien. The patient denies any smoking or alcohol abuse. The patient also takes cyclobenzaprine 20 mg at nighttime, lorazepam 1 mg at bedtime, also uses a breathing treatment, aspirin, Plavix, pantoprazole, thyroid supplement, hydrochlorothiazide, pravastatin, Topamax, Diovan, rimegepant on as needed basis for migraines. The patient since admission had an MRI scan of her brain and chest x-rays, which failed to reveal any acute abnormalities. The patient admits some headaches. She admits occasional dizziness mainly with change of position. She also admits urinary incontinence and urinary dribbling while up. FAMILY HISTORY: Diabetes mellitus and heart disease with grandparents. ALLERGIES: SHE IS KNOWN ALLERGIC TO ACETAMINOPHEN, GABAPENTIN, HYDROCODONE, METOPROLOL, MORPHINE, OXYCODONE AND AMBIEN. PHYSICAL EXAMINATION: On physical examination today revealed a middle-aged female. She is alert, oriented to place and person, follows commands appropriately, moves all 4 extremities voluntarily where she had 4+/5 grade muscle strength. Deep tendon reflexes are decreased overall. She had equal perception of touch and pinprick sensation bilaterally. She had tenderness to palpation over cervical paraspinal muscles, over upper trapezius muscles, over mid thoracic paraspinal muscles, over sacroiliac joint area and trochanteric bursa bilaterally. Straight leg raising test is negative bilaterally. She had pain free range of motion of all four extremity joints where she had 4+/5 to 5/5 grade muscle strength and she had equal perception of touch and pinprick sensation bilaterally. She is independent with bed mobility and transfers, felt somewhat dizzy while coming to a sitting position, but no significant drop with her blood pressure was noted with change of posture. She got up and walked with wide-based gait using a walker. She had bruised skin over her back and over medial aspect of left thigh. ASSESSMENT: A middle-aged female with frequent falls, most probably from lethargy in association with peripheral neuropathy with cervical and thoracic sprain and also probable degenerative disk disease of lumbar vertebrae without any clinical evidence of ongoing lumbar radiculopathy, mild obesity. The patient with known Amarjit's disease, hypertension, hyperlipidemia, gastroesophageal reflux disease, hypothyroidism and early onset dementia. RECOMMENDATIONS: Agree with the plans for physical therapy and occupational therapy to ask for a screen for transfer to skilled or rehab unit for continued care as she is by herself alone at home when her goes to work. Dr. Davis, I appreciate asking me to participate in the care of this interesting patient. I will be glad to follow her with you as needed for her rehabilitation. ALDA SMALL MD DR: GUILLERMO/eriberto JOB#: [id number] / [id number]
[2020-01-09] MEDS: IV NORMAL SALINE 1000ML BAG 1,000 ML IV SCH ×3 (00:37→23:49)
[2020-01-09 03:00] VITALS: BP 116/64
[2020-01-09 06:40] LABS: BASO # 0.1 x10^3/uL (0.0-0.2); BASO % 1 % (0-3); EOS # 0.4 x10^3/uL (0.0-0.7); EOS % 7 % (0-3); HEMATOCRIT 30.5 % (36.0-47.0); HEMOGLOBIN 9.9 g/dL (12.0-15.5); LYMPH # 1.5 x10^3/uL (1.0-4.8); LYMPH % 26 % (24-48); MEAN CORPUSCULAR HEMOGLOBIN 29 pg (25-35); MEAN CORPUSCULAR HGB CONC 33 g/dL (31-37); MEAN CORPUSCULAR VOLUME 89 fL (79-100); MONO # 0.4 x10^3/uL (0.0-1.1); MONO % 7 % (0-9); NEUT # 3.6 x10^3/uL (1.8-7.7); NEUT % 59 % (31-73); PLATELET COUNT 277 x10^3/uL (140-400); RED BLOOD COUNT 3.44 x10^6/uL (3.50-5.40); RED CELL DISTRIBUTION WIDTH 14.4 % (11.5-14.5)
[2020-01-09 06:50] LABS: CALCIUM 8.3 mg/dL (8.5-10.1); GFR 57.4; POTASSIUM 3.7 mmol/L (3.5-5.1)
[2020-01-09 07:00] VITALS: BP 97/66
[2020-01-09] MEDS: TOPIRAMATE 25 MG TABLET. PO SCH ×2 (07:00→21:45)
[2020-01-09] MEDS: INSULIN LISPRO 300 UNITS/3 ML VIAL. SQ SCH ×3 (08:00→17:00)
--- NOTE | 2020-01-09 08:44 | PDOC ---
PROGRESS NOTES Date of Service: DATE: 01/09/20 TIME: 08:42 Subjective Subjective no new problems Objective Objective Vital Signs Date Time Temp Pulse Resp B/P (MAP) Pulse Ox O2 Delivery O2 Flow Rate FiO2 01/09/20 03:00 97.4 80 16 116/64 (81) 94 Room Air 97.4 Intake and Output 01/09/20 06:59 Intake Total 1000 ml Balance 1000 ml Intake Oral 0 ml IV Total 1000 ml # Voids 2 Physical Exam Abdomen: Soft Heart: Regular rate, Normal S1, Normal S2 Extremities: No clubbing General: Alert HEENT: Atraumatic Lungs: Clear to auscultation MUSCULOSKELETAL: No deformity Neuro: Normal speech Psych/Mental Status: Mental status NL Skin: No breakdown Assessment Assessment FINAL IMPRESSION: 1. Recurrent falls, especially her 4 falls over the weekend. 2. Amarjit disease?. 3. Hypertension. 4. Hyperlipidemia. 5. Hypothyroidism. 6. Early-onset dementia. 7. 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 SNU tomorrow? COvid test for placement. At this time, was admitted to the hospital. Probably, needs Neurology as well as rehab. May end up going to other rehab unit or a [facility] until her strength improves. PT/OT and once we get the CT, if there is no bleeding, we can give Lovenox for DVT prevention. Comment Review of Relevant I have reviewed the following items delroy (where applicable) has been applied. Labs Laboratory Tests Test 01/08/20 11:10 01/08/20 11:33 01/08/20 12:00 01/08/20 16:50 C-Reactive Protein, Quantitative 11.5 mg/L (0-3.3) Vitamin B12 Level 344 pg/mL (247-911) Thyroid Stimulating Hormone (TSH) 3.638 uIU/mL (0.358-3.74) Glucose (Fingerstick) 46 mg/dL (70-99) 234 mg/dL (70-99) 58 mg/dL (70-99) Test 01/08/20 20:41 01/09/20 06:20 01/09/20 07:54 Glucose (Fingerstick) 71 mg/dL (70-99) 85 mg/dL (70-99) White Blood Count 6.0 x10^3/uL (4.0-11.0) Red Blood Count 3.44 x10^6/uL (3.50-5.40) Hemoglobin 9.9 g/dL (12.0-15.5) Hematocrit 30.5 % (36.0-47.0) Mean Corpuscular Volume 89 fL (79-100) Mean Corpuscular Hemoglobin 29 pg (25-35) Mean Corpuscular Hemoglobin Concent 33 g/dL (31-37) Red Cell Distribution Width 14.4 % (11.5-14.5) Platelet Count 277 x10^3/uL (140-400) Neutrophils (%) (Auto) 59 % (31-73) Lymphocytes (%) (Auto) 26 % (24-48) Monocytes (%) (Auto) 7 % (0-9) Eosinophils (%) (Auto) 7 % (0-3) Basophils (%) (Auto) 1 % (0-3) Neutrophils # (Auto) 3.6 x10^3/uL (1.8-7.7) Lymphocytes # (Auto) 1.5 x10^3/uL (1.0-4.8) Monocytes # (Auto) 0.4 x10^3/uL (0.0-1.1) Eosinophils # (Auto) 0.4 x10^3/uL (0.0-0.7) Basophils # (Auto) 0.1 x10^3/uL (0.0-0.2) Sodium Level 145 mmol/L (136-145) Potassium Level 3.7 mmol/L (3.5-5.1) Chloride Level 114 mmol/L (98-107) Carbon Dioxide Level 22 mmol/L (21-32) Anion Gap 9 (6-14) Blood Urea Nitrogen 18 mg/dL (7-20) Creatinine 1.0 mg/dL (0.6-1.0) Estimated GFR (Cockcroft-Gault) 57.4 Glucose Level 93 mg/dL (70-99) Calcium Level 8.3 mg/dL (8.5-10.1) Medications Current Medications Amlodipine Besylate (Norvasc) 5 mg DAILY PO Last administered on 01/08/20at 10:53; Start 01/08/20 at 09:00 Aspirin (Aspirin Chewable) 81 mg DAILY PO Last administered on 01/08/20at 10:52; Start 01/08/20 at 09:00 Clopidogrel Bisulfate (Plavix) 75 mg DAILY PO Last administered on 01/08/20at 10:51; Start 01/08/20 at 09:00 Ergocalciferol (Vitamin D2) 50,000 unit WEEKLY PO ; Start 01/14/20 at 09:00 Hydrochlorothiazide (Hydrodiuril) 25 mg DAILY PO Last administered on 01/08/20at 10:51; Start 01/08/20 at 09:00 Losartan Potassium (Cozaar) 100 mg DAILY PO Last administered on 01/08/20at 10:52; Start 01/08/20 at 09:00 Vitals/I & O Vital Sign - Last 24 Hours 01/08/20 01/08/20 01/08/20 01/08/20 10:52 10:53 11:00 15:00 Temp 97.2 97.4 97.2 97.4 Pulse 87 70 Resp 17 17 B/P (MAP) 142/86 142/86 142/85 (104) 126/81 (96) Pulse Ox 98 98 O2 Delivery Room Air Room Air 01/08/20 01/08/20 01/08/20 01/09/20 19:00 20:00 23:00 03:00 Temp 97.4 97.4 97.4 97.4 97.4 97.4 Pulse 71 80 80 Resp 16 16 16 B/P (MAP) 117/87 (97) 121/75 (90) 116/64 (81) Pulse Ox 97 97 94 O2 Delivery Room Air Room Air Room Air Room Air Intake and Output 01/08/20 01/08/20 01/09/20 14:59 22:59 06:59 Intake Total 1000 ml Balance 1000 ml Justifications for Admission Other Justification SAMI HATHAWAY MD Jan 09, 2020 08:44
[2020-01-09] MEDS: MUPIROCIN 2 % NASAL OINTMENT 22GM TUBE. TP SCH ×2 (09:00→21:45)
--- NOTE | 2020-01-09 09:14 | PDOC ---
PROGRESS NOTES Date of Service DATE: 01/09/20 TIME: 09:13 Subjective Subjective No new complaints. Objective Objective Vital Signs Date Time Temp Pulse Resp B/P (MAP) Pulse Ox O2 Delivery O2 Flow Rate FiO2 01/09/20 07:00 98.2 72 17 97/66 (76) 96 Room Air 98.2 Intake and Output 01/09/20 07:00 Intake Total 1000 ml Balance 1000 ml Intake Oral 0 ml IV Total 1000 ml # Voids 2 Physical Exam Physical Exam She is walking with roller walker under supervision and she is voiding well as per nursing. Plan Plan of Care To continue present rehab efforts as tolerated. Comment Review of Relevant I have reviewed the following items delroy (where applicable) has been applied. Labs Laboratory Tests Test 01/07/20 19:27 01/07/20 19:30 01/07/20 20:20 01/07/20 20:54 Sodium Level 146 mmol/L (136-145) Potassium Level 3.4 mmol/L (3.5-5.1) Chloride Level 112 mmol/L (98-107) Carbon Dioxide Level 25 mmol/L (21-32) Anion Gap 9 (6-14) Blood Urea Nitrogen 27 mg/dL (7-20) Creatinine 1.3 mg/dL (0.6-1.0) Estimated GFR (Cockcroft-Gault) 42.4 BUN/Creatinine Ratio 21 (6-20) Glucose Level 64 mg/dL (70-99) Calcium Level 8.5 mg/dL (8.5-10.1) Total Bilirubin 0.3 mg/dL (0.2-1.0) Aspartate Amino Transf (AST/SGOT) 36 U/L (15-37) Alanine Aminotransferase (ALT/SGPT) 42 U/L (14-59) Alkaline Phosphatase 93 U/L (46-116) Total Protein 6.0 g/dL (6.4-8.2) Albumin 3.2 g/dL (3.4-5.0) Albumin/Globulin Ratio 1.1 (1.0-1.7) White Blood Count 7.6 x10^3/uL (4.0-11.0) Red Blood Count 3.22 x10^6/uL (3.50-5.40) Hemoglobin 9.6 g/dL (12.0-15.5) Hematocrit 28.5 % (36.0-47.0) Mean Corpuscular Volume 89 fL (79-100) Mean Corpuscular Hemoglobin 30 pg (25-35) Mean Corpuscular Hemoglobin Concent 34 g/dL (31-37) Red Cell Distribution Width 14.5 % (11.5-14.5) Platelet Count 269 x10^3/uL (140-400) Neutrophils (%) (Auto) 72 % (31-73) Lymphocytes (%) (Auto) 16 % (24-48) Monocytes (%) (Auto) 6 % (0-9) Eosinophils (%) (Auto) 4 % (0-3) Basophils (%) (Auto) 1 % (0-3) Neutrophils # (Auto) 5.5 x10^3/uL (1.8-7.7) Lymphocytes # (Auto) 1.2 x10^3/uL (1.0-4.8) Monocytes # (Auto) 0.5 x10^3/uL (0.0-1.1) Eosinophils # (Auto) 0.3 x10^3/uL (0.0-0.7) Basophils # (Auto) 0.1 x10^3/uL (0.0-0.2) Urine Collection Type Unknown Urine Color Straw Urine Clarity Clear Urine pH 6.5 (<5.0-8.0) Urine Specific [place] 1.010 (1.000-1.030) Urine Protein Negative mg/dL (NEG-TRACE) Urine Glucose (UA) Negative mg/dL (NEG) Urine Ketones (Stick) Negative mg/dL (NEG) Urine Blood Negative (NEG) Urine Nitrite Negative (NEG) Urine Bilirubin Negative (NEG) Urine Urobilinogen Dipstick 0.2 mg/dL (0.2 mg/dL) Urine Leukocyte Esterase Trace (NEG) Urine RBC 0 /HPF (0-2) Urine WBC 1-4 /HPF (0-4) Urine Squamous Epithelial Cells Mod /LPF Urine Bacteria Few /HPF (0-FEW) Glucose (Fingerstick) 61 mg/dL (70-99) Test 01/07/20 21:48 01/08/20 11:10 01/08/20 11:33 01/08/20 12:00 Glucose (Fingerstick) 80 mg/dL (70-99) 46 mg/dL (70-99) 234 mg/dL (70-99) C-Reactive Protein, Quantitative 11.5 mg/L (0-3.3) Vitamin B12 Level 344 pg/mL (247-911) Thyroid Stimulating Hormone (TSH) 3.638 uIU/mL (0.358-3.74) Test 01/08/20 16:50 01/08/20 20:41 01/09/20 06:20 01/09/20 07:54 Glucose (Fingerstick) 58 mg/dL (70-99) 71 mg/dL (70-99) 85 mg/dL (70-99) White Blood Count 6.0 x10^3/uL (4.0-11.0) Red Blood Count 3.44 x10^6/uL (3.50-5.40) Hemoglobin 9.9 g/dL (12.0-15.5) Hematocrit 30.5 % (36.0-47.0) Mean Corpuscular Volume 89 fL (79-100) Mean Corpuscular Hemoglobin 29 pg (25-35) Mean Corpuscular Hemoglobin Concent 33 g/dL (31-37) Red Cell Distribution Width 14.4 % (11.5-14.5) Platelet Count 277 x10^3/uL (140-400) Neutrophils (%) (Auto) 59 % (31-73) Lymphocytes (%) (Auto) 26 % (24-48) Monocytes (%) (Auto) 7 % (0-9) Eosinophils (%) (Auto) 7 % (0-3) Basophils (%) (Auto) 1 % (0-3) Neutrophils # (Auto) 3.6 x10^3/uL (1.8-7.7) Lymphocytes # (Auto) 1.5 x10^3/uL (1.0-4.8) Monocytes # (Auto) 0.4 x10^3/uL (0.0-1.1) Eosinophils # (Auto) 0.4 x10^3/uL (0.0-0.7) Basophils # (Auto) 0.1 x10^3/uL (0.0-0.2) Sodium Level 145 mmol/L (136-145) Potassium Level 3.7 mmol/L (3.5-5.1) Chloride Level 114 mmol/L (98-107) Carbon Dioxide Level 22 mmol/L (21-32) Anion Gap 9 (6-14) Blood Urea Nitrogen 18 mg/dL (7-20) Creatinine 1.0 mg/dL (0.6-1.0) Estimated GFR (Cockcroft-Gault) 57.4 Glucose Level 93 mg/dL (70-99) Calcium Level 8.3 mg/dL (8.5-10.1) Laboratory Tests Test 01/08/20 11:10 01/08/20 11:33 01/08/20 12:00 01/08/20 16:50 C-Reactive Protein, Quantitative 11.5 mg/L (0-3.3) Vitamin B12 Level 344 pg/mL (247-911) Thyroid Stimulating Hormone (TSH) 3.638 uIU/mL (0.358-3.74) Glucose (Fingerstick) 46 mg/dL (70-99) 234 mg/dL (70-99) 58 mg/dL (70-99) Test 01/08/20 20:41 01/09/20 06:20 01/09/20 07:54 Glucose (Fingerstick) 71 mg/dL (70-99) 85 mg/dL (70-99) White Blood Count 6.0 x10^3/uL (4.0-11.0) Red Blood Count 3.44 x10^6/uL (3.50-5.40) Hemoglobin 9.9 g/dL (12.0-15.5) Hematocrit 30.5 % (36.0-47.0) Mean Corpuscular Volume 89 fL (79-100) Mean Corpuscular Hemoglobin 29 pg (25-35) Mean Corpuscular Hemoglobin Concent 33 g/dL (31-37) Red Cell Distribution Width 14.4 % (11.5-14.5) Platelet Count 277 x10^3/uL (140-400) Neutrophils (%) (Auto) 59 % (31-73) Lymphocytes (%) (Auto) 26 % (24-48) Monocytes (%) (Auto) 7 % (0-9) Eosinophils (%) (Auto) 7 % (0-3) Basophils (%) (Auto) 1 % (0-3) Neutrophils # (Auto) 3.6 x10^3/uL (1.8-7.7) Lymphocytes # (Auto) 1.5 x10^3/uL (1.0-4.8) Monocytes # (Auto) 0.4 x10^3/uL (0.0-1.1) Eosinophils # (Auto) 0.4 x10^3/uL (0.0-0.7) Basophils # (Auto) 0.1 x10^3/uL (0.0-0.2) Sodium Level 145 mmol/L (136-145) Potassium Level 3.7 mmol/L (3.5-5.1) Chloride Level 114 mmol/L (98-107) Carbon Dioxide Level 22 mmol/L (21-32) Anion Gap 9 (6-14) Blood Urea Nitrogen 18 mg/dL (7-20) Creatinine 1.0 mg/dL (0.6-1.0) Estimated GFR (Cockcroft-Gault) 57.4 Glucose Level 93 mg/dL (70-99) Calcium Level 8.3 mg/dL (8.5-10.1) Medications Current Medications Albuterol Sulfate (Ventolin Neb Soln) 2 mg PRN Q4HRS PRN INH wheezing; Start 01/07/20 at 18:45 Amlodipine Besylate (Norvasc) 5 mg DAILY PO Last administered on 01/08/20at 10:53; Start 01/08/20 at 09:00 Aspirin (Aspirin Chewable) 81 mg DAILY PO Last administered on 01/08/20at 10:52; Start 01/08/20 at 09:00 Clopidogrel Bisulfate (Plavix) 75 mg DAILY PO Last administered on 01/08/20at 10:51; Start 01/08/20 at 09:00 Ergocalciferol (Vitamin D2) 50,000 unit WEEKLY PO ; Start 01/14/20 at 09:00 Levothyroxine Sodium (Synthroid) 25 mcg DAILY06 PO Last administered on 01/08/20at 05:45; Start 01/08/20 at 06:00 Mupirocin (Bactroban) 1 lyndsey BID TP Last administered on 01/08/20at 20:15; Start 01/07/20 at 21:00 Hydrochlorothiazide (Hydrodiuril) 25 mg DAILY PO Last administered on 01/08/20at 10:51; Start 01/08/20 at 09:00 Pantoprazole Sodium (Protonix) 40 mg DAILYAC PO Last administered on 01/08/20at 10:51; Start 01/08/20 at 07:30 Atorvastatin Calcium (Lipitor) 10 mg QHS PO Last administered on 01/08/20at 2 0:15; Start 01/07/20 at 21:00 Promethazine HCl (Phenergan) 25 mg PRN Q12HRS PRN PO NAUSEA/VOMITING; Start 01/07/20 at 19:00 Non-Formulary Medication (Rimegepant Sulfate (Nurtec Odt)) 75 mg PRN DAILY PRN PO MIGRAINE HEADACHE; Start 01/07/20 at 18:45; Status UNV Topiramate (Topamax) 75 mg BID PO ; Start 01/07/20 at 19:00; Stop 01/07/20 at 18:48; Status DC Losartan Potassium (Cozaar) 100 mg DAILY PO Last administered on 01/08/20at 10:52; Start 01/08/20 at 09:00 Lorazepam (Ativan) 0.5 mg PRN QHS PRN PO ANXIETY / AGITATION Last administered on 01/08/20at 21:12; Start 01/07/20 at 18:45 Sodium Chloride 1,000 ml @ 75 mls/hr [id number] IV Last administered on 01/09/20at 00:37; Start 01/07/20 at 18:45 Insulin Human Lispro (HumaLOG) 0-5 UNITS TIDWMEALS SQ ; Start 01/08/20 at 08:00 Dextrose (Dextrose 50%-Water Syringe) 12.5 gm PRN Q15MIN PRN IV SEE COMMENTS Last administered on 01/08/20at 16:56; Start 01/07/20 at 18:45 Topiramate (Topamax) 75 mg Q12H PO Last administered on 01/08/20at 21:12; Start 01/07/20 at 19:00 Active Scripts Active Reported Levothyroxine Sodium 25 Mcg Tablet 1 Tab PO DAILY Amlodipine Besylate 5 Mg Tablet 5 Mg PO DAILY Proair Hfa (Albuterol Sulfate) 8.5 Gm Hfa.aer.ad 2 Puff IH PRN Q4-6HRS PRN 21 Days Nurtec Odt (Rimegepant Sulfate) 75 Mg Tab.rapdis 75 Mg PO PRN DAILY PRN Vitamin D2 (Ergocalciferol (Vitamin D2)) 50,000 Unit Capsule 1 Cap PO WEEKLY Pravastatin Sodium 20 Mg Tablet 2 Tab PO DAILY Mupirocin Ointment (Mupirocin) 22 Gm Oint...g. 1 Lyndsey TP BID Clopidogrel (Clopidogrel Bisulfate) 75 Mg Tablet 1 Tab PO DAILY Topiramate 200 Mg Tablet 75 Mg PO BID Lorazepam 1 Mg Tablet 1 Mg PO HS Promethazine Hcl 25 Mg Tablet 25 Mg PO BID PRN Cyclobenzaprine Hcl 10 Mg Tablet 20 Mg PO HS Diovan (Valsartan) 160 Mg Tablet 320 Mg PO DAILY Protonix (Pantoprazole Sodium) 20 Mg Tablet.dr 40 Mg PO DAILY Hydrochlorothiazide Tablet (Hydrochlorothiazide) 12.5 Mg Tablet 25 Mg PO DAILY Aspirin 81 Mg Tab.chew 1 Tab PO DAILY Vitals/I & O Vital Sign - Last 24 Hours 01/08/20 01/08/20 01/08/20 01/08/20 10:52 10:53 11:00 15:00 Temp 97.2 97.4 97.2 97.4 Pulse 87 70 Resp 17 17 B/P (MAP) 142/86 142/86 142/85 (104) 126/81 (96) Pulse Ox 98 98 O2 Delivery Room Air Room Air 01/08/20 01/08/20 01/08/20 01/09/20 19:00 20:00 23:00 03:00 Temp 97.4 97.4 97.4 97.4 97.4 97.4 Pulse 71 80 80 Resp 16 16 16 B/P (MAP) 117/87 (97) 121/75 (90) 116/64 (81) Pulse Ox 97 97 94 O2 Delivery Room Air Room Air Room Air Room Air 01/09/20 07:00 Temp 98.2 98.2 Pulse 72 Resp 17 B/P (MAP) 97/66 (76) Pulse Ox 96 O2 Delivery Room Air Intake and Output 01/08/20 01/08/20 01/09/20 15:00 23:00 07:00 Intake Total 1000 ml Balance 1000 ml Justifications for Admission Other Justification ALDA SMALL MD Jan 09, 2020 09:14
[2020-01-09] MEDS: hydroCHLOROthiazide 25 MG TABLET PO SCH ×2 (10:40→12:57)
[2020-01-09] MEDS: CLOPIDOGREL BISULFATE 75 MG TABLET PO SCH (10:40)
[2020-01-09] MEDS: ASPIRIN CHEWABLE 81 MG TABLET. PO SCH (10:40)
[2020-01-09] MEDS: LEVOTHYROXINE 25 MCG TABLET. PO SCH (10:40)
[2020-01-09] MEDS: PANTOPRAZOLE 40 MG TABLET.DR. PO SCH (10:42)
[2020-01-09 11:00] VITALS: BP 135/86
--- NOTE | 2020-01-09 12:33 | PDOC ---
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 MRI is negative for any findings of Amarjit's disease or other abnormality for that matter Gait disorder, may be just from the peripheral neuropathy Peripheral neuropathy, suspect it is diabetic History of migraine headaches History of stroke Plan Recheck Amarjit's studies Await rest of laboratory studies, though so far are normal MRI of the brain Rehabilitation modalities Outpatient second opinion at , no need for inpatient transfer Patient is reluctant to go, but I recommend fpc unit for a week or 2 Subjective Is willing to consider fpc unit Objective Vital Signs Date Time Temp Pulse Resp B/P (MAP) Pulse Ox O2 Delivery O2 Flow Rate FiO2 01/09/20 11:00 98.4 74 18 135/86 (102) 100 Room Air 98.4 Intake and Output 01/09/20 07:00 Intake Total 1000 ml Balance 1000 ml Intake Oral 0 ml IV Total 1000 ml # Voids 2 PHYSICAL EXAM Alert. Oriented to time, place and person. PERRL. EOMI. CN: no focal findings. Muscle tone: normal. Muscle strength: 5/5 DTR: 1+ Plantar reflex: Flexor Gait: not examined in bed. Sensory exam: Diffuse hypesthesia. No cerebellar signs elicited. Mild postural tremor Review of Relevant I have reviewed the following items delroy (where applicable) has been applied. Labs Laboratory Tests Test 01/07/20 19:27 01/07/20 19:30 01/07/20 20:20 01/07/20 20:54 Sodium Level 146 mmol/L (136-145) Potassium Level 3.4 mmol/L (3.5-5.1) Chloride Level 112 mmol/L (98-107) Carbon Dioxide Level 25 mmol/L (21-32) Anion Gap 9 (6-14) Blood Urea Nitrogen 27 mg/dL (7-20) Creatinine 1.3 mg/dL (0.6-1.0) Estimated GFR (Cockcroft-Gault) 42.4 BUN/Creatinine Ratio 21 (6-20) Glucose Level 64 mg/dL (70-99) Calcium Level 8.5 mg/dL (8.5-10.1) Total Bilirubin 0.3 mg/dL (0.2-1.0) Aspartate Amino Transf (AST/SGOT) 36 U/L (15-37) Alanine Aminotransferase (ALT/SGPT) 42 U/L (14-59) Alkaline Phosphatase 93 U/L (46-116) Total Protein 6.0 g/dL (6.4-8.2) Albumin 3.2 g/dL (3.4-5.0) Albumin/Globulin Ratio 1.1 (1.0-1.7) White Blood Count 7.6 x10^3/uL (4.0-11.0) Red Blood Count 3.22 x10^6/uL (3.50-5.40) Hemoglobin 9.6 g/dL (12.0-15.5) Hematocrit 28.5 % (36.0-47.0) Mean Corpuscular Volume 89 fL (79-100) Mean Corpuscular Hemoglobin 30 pg (25-35) Mean Corpuscular Hemoglobin Concent 34 g/dL (31-37) Red Cell Distribution Width 14.5 % (11.5-14.5) Platelet Count 269 x10^3/uL (140-400) Neutrophils (%) (Auto) 72 % (31-73) Lymphocytes (%) (Auto) 16 % (24-48) Monocytes (%) (Auto) 6 % (0-9) Eosinophils (%) (Auto) 4 % (0-3) Basophils (%) (Auto) 1 % (0-3) Neutrophils # (Auto) 5.5 x10^3/uL (1.8-7.7) Lymphocytes # (Auto) 1.2 x10^3/uL (1.0-4.8) Monocytes # (Auto) 0.5 x10^3/uL (0.0-1.1) Eosinophils # (Auto) 0.3 x10^3/uL (0.0-0.7) Basophils # (Auto) 0.1 x10^3/uL (0.0-0.2) Urine Collection Type Unknown Urine Color Straw Urine Clarity Clear Urine pH 6.5 (<5.0-8.0) Urine Specific [place] 1.010 (1.000-1.030) Urine Protein Negative mg/dL (NEG-TRACE) Urine Glucose (UA) Negative mg/dL (NEG) Urine Ketones (Stick) Negative mg/dL (NEG) Urine Blood Negative (NEG) Urine Nitrite Negative (NEG) Urine Bilirubin Negative (NEG) Urine Urobilinogen Dipstick 0.2 mg/dL (0.2 mg/dL) Urine Leukocyte Esterase Trace (NEG) Urine RBC 0 /HPF (0-2) Urine WBC 1-4 /HPF (0-4) Urine Squamous Epithelial Cells Mod /LPF Urine Bacteria Few /HPF (0-FEW) Glucose (Fingerstick) 61 mg/dL (70-99) Test 01/07/20 21:48 01/08/20 11:10 01/08/20 11:33 01/08/20 12:00 Glucose (Fingerstick) 80 mg/dL (70-99) 46 mg/dL (70-99) 234 mg/dL (70-99) C-Reactive Protein, Quantitative 11.5 mg/L (0-3.3) Vitamin B12 Level 344 pg/mL (247-911) Thyroid Stimulating Hormone (TSH) 3.638 uIU/mL (0.358-3.74) Test 01/08/20 16:50 01/08/20 20:41 01/09/20 06:20 01/09/20 07:54 Glucose (Fingerstick) 58 mg/dL (70-99) 71 mg/dL (70-99) 85 mg/dL (70-99) White Blood Count 6.0 x10^3/uL (4.0-11.0) Red Blood Count 3.44 x10^6/uL (3.50-5.40) Hemoglobin 9.9 g/dL (12.0-15.5) Hematocrit 30.5 % (36.0-47.0) Mean Corpuscular Volume 89 fL (79-100) Mean Corpuscular Hemoglobin 29 pg (25-35) Mean Corpuscular Hemoglobin Concent 33 g/dL (31-37) Red Cell Distribution Width 14.4 % (11.5-14.5) Platelet Count 277 x10^3/uL (140-400) Neutrophils (%) (Auto) 59 % (31-73) Lymphocytes (%) (Auto) 26 % (24-48) Monocytes (%) (Auto) 7 % (0-9) Eosinophils (%) (Auto) 7 % (0-3) Basophils (%) (Auto) 1 % (0-3) Neutrophils # (Auto) 3.6 x10^3/uL (1.8-7.7) Lymphocytes # (Auto) 1.5 x10^3/uL (1.0-4.8) Monocytes # (Auto) 0.4 x10^3/uL (0.0-1.1) Eosinophils # (Auto) 0.4 x10^3/uL (0.0-0.7) Basophils # (Auto) 0.1 x10^3/uL (0.0-0.2) Sodium Level 145 mmol/L (136-145) Potassium Level 3.7 mmol/L (3.5-5.1) Chloride Level 114 mmol/L (98-107) Carbon Dioxide Level 22 mmol/L (21-32) Anion Gap 9 (6-14) Blood Urea Nitrogen 18 mg/dL (7-20) Creatinine 1.0 mg/dL (0.6-1.0) Estimated GFR (Cockcroft-Gault) 57.4 Glucose Level 93 mg/dL (70-99) Calcium Level 8.3 mg/dL (8.5-10.1) Test 01/09/20 12:01 Glucose (Fingerstick) 100 mg/dL (70-99) Laboratory Tests Test 01/08/20 16:50 01/08/20 20:41 01/09/20 06:20 01/09/20 07:54 Glucose (Fingerstick) 58 mg/dL (70-99) 71 mg/dL (70-99) 85 mg/dL (70-99) White Blood Count 6.0 x10^3/uL (4.0-11.0) Red Blood Count 3.44 x10^6/uL (3.50-5.40) Hemoglobin 9.9 g/dL (12.0-15.5) Hematocrit 30.5 % (36.0-47.0) Mean Corpuscular Volume 89 fL (79-100) Mean Corpuscular Hemoglobin 29 pg (25-35) Mean Corpuscular Hemoglobin Concent 33 g/dL (31-37) Red Cell Distribution Width 14.4 % (11.5-14.5) Platelet Count 277 x10^3/uL (140-400) Neutrophils (%) (Auto) 59 % (31-73) Lymphocytes (%) (Auto) 26 % (24-48) Monocytes (%) (Auto) 7 % (0-9) Eosinophils (%) (Auto) 7 % (0-3) Basophils (%) (Auto) 1 % (0-3) Neutrophils # (Auto) 3.6 x10^3/uL (1.8-7.7) Lymphocytes # (Auto) 1.5 x10^3/uL (1.0-4.8) Monocytes # (Auto) 0.4 x10^3/uL (0.0-1.1) Eosinophils # (Auto) 0.4 x10^3/uL (0.0-0.7) Basophils # (Auto) 0.1 x10^3/uL (0.0-0.2) Sodium Level 145 mmol/L (136-145) Potassium Level 3.7 mmol/L (3.5-5.1) Chloride Level 114 mmol/L (98-107) Carbon Dioxide Level 22 mmol/L (21-32) Anion Gap 9 (6-14) Blood Urea Nitrogen 18 mg/dL (7-20) Creatinine 1.0 mg/dL (0.6-1.0) Estimated GFR (Cockcroft-Gault) 57.4 Glucose Level 93 mg/dL (70-99) Calcium Level 8.3 mg/dL (8.5-10.1) Test 01/09/20 12:01 Glucose (Fingerstick) 100 mg/dL (70-99) Microbiology 01/07/20 Urine Culture - Final, Complete Medications Current Medications Albuterol Sulfate (Ventolin Neb Soln) 2 mg PRN Q4HRS PRN INH wheezing; Start 01/07/20 at 18:45 Amlodipine Besylate (Norvasc) 5 mg DAILY PO Last administered on 01/08/20at 10:53; Start 01/08/20 at 09:00 Aspirin (Aspirin Chewable) 81 mg DAILY PO Last administered on 01/09/20at 10:40; Start 01/08/20 at 09:00 Clopidogrel Bisulfate (Plavix) 75 mg DAILY PO Last administered on 01/09/20at 10:40; Start 01/08/20 at 09:00 Ergocalciferol (Vitamin D2) 50,000 unit WEEKLY PO ; Start 01/14/20 at 09:00 Levothyroxine Sodium (Synthroid) 25 mcg DAILY06 PO Last administered on 01/09/20 10:40; Start 01/08/20 at 06:00 Mupirocin (Bactroban) 1 lyndsey BID TP Last administered on 01/08/20 20:15; Start 01/07/20 at 21:00 Hydrochlorothiazide (Hydrodiuril) 25 mg DAILY PO Last administered on 01/08/20 10:51; Start 01/08/20 at 09:00 Pantoprazole Sodium (Protonix) 40 mg DAILYAC PO Last administered on 01/09/20 10:42; Start 01/08/20 at 07:30 Atorvastatin Calcium (Lipitor) 10 mg QHS PO Last administered on 01/08/20 20:15; Start 01/07/20 at 21:00 Promethazine HCl (Phenergan) 25 mg PRN Q12HRS PRN PO NAUSEA/VOMITING; Start 01/07/20 at 19:00 Non-Formulary Medication (Rimegepant Sulfate (Nurtec Odt)) 75 mg PRN DAILY PRN PO MIGRAINE HEADACHE; Start 01/07/20 at 18:45; Status UNV Topiramate (Topamax) 75 mg BID PO ; Start 01/07/20 at 19:00; Stop 01/07/20 at 18:48; Status DC Losartan Potassium (Cozaar) 100 mg DAILY PO Last administered on 01/08/20 10:52; Start 01/08/20 at 09:00 Lorazepam (Ativan) 0.5 mg PRN QHS PRN PO ANXIETY / AGITATION Last administered on 01/08/20 21:12; Start 01/07/20 at 18:45 Sodium Chloride 1,000 ml @ 75 mls/hr [id number] IV Last administered on 01/09/20at 10:43; Start 01/07/20 at 18:45 Insulin Human Lispro (HumaLOG) 0-5 UNITS TIDWMEALS SQ ; Start 01/08/20 at 08:00 Dextrose (Dextrose 50%-Water Syringe) 12.5 gm PRN Q15MIN PRN IV SEE COMMENTS Last administered on 01/08/20 16:56; Start 01/07/20 at 18:45 Topiramate (Topamax) 75 mg Q12H PO Last administered on 9/2/20at 21:12; Start 01/07/20 at 19:00 Active Scripts Active Reported Levothyroxine Sodium 25 Mcg Tablet 1 Tab PO DAILY Amlodipine Besylate 5 Mg Tablet 5 Mg PO DAILY Proair Hfa (Albuterol Sulfate) 8.5 Gm Hfa.aer.ad 2 Puff IH PRN Q4-6HRS PRN 21 Days Nurtec Odt (Rimegepant Sulfate) 75 Mg Tab.rapdis 75 Mg PO PRN DAILY PRN Vitamin D2 (Ergocalciferol (Vitamin D2)) 50,000 Unit Capsule 1 Cap PO WEEKLY Pravastatin Sodium 20 Mg Tablet 2 Tab PO DAILY Mupirocin Ointment (Mupirocin) 22 Gm Oint...g. 1 Lyndsey TP BID Clopidogrel (Clopidogrel Bisulfate) 75 Mg Tablet 1 Tab PO DAILY Topiramate 200 Mg Tablet 75 Mg PO BID Lorazepam 1 Mg Tablet 1 Mg PO HS Promethazine Hcl 25 Mg Tablet 25 Mg PO BID PRN Cyclobenzaprine Hcl 10 Mg Tablet 20 Mg PO HS Diovan (Valsartan) 160 Mg Tablet 320 Mg PO DAILY Protonix (Pantoprazole Sodium) 20 Mg Tablet.dr 40 Mg PO DAILY Hydrochlorothiazide Tablet (Hydrochlorothiazide) 12.5 Mg Tablet 25 Mg PO DAILY Aspirin 81 Mg Tab.chew 1 Tab PO DAILY Vitals/I & O Vital Sign - Last 24 Hours 01/08/20 01/08/20 01/08/20 01/08/20 15:00 19:00 20:00 23:00 Temp 97.4 97.4 97.4 97.4 97.4 97.4 Pulse 70 71 80 Resp 17 16 16 B/P (MAP) 126/81 (96) 117/87 (97) 121/75 (90) Pulse Ox 98 97 97 O2 Delivery Room Air Room Air Room Air Room Air 01/09/20 01/09/20 01/09/20 03:00 07:00 11:00 Temp 97.4 98.2 98.4 97.4 98.2 98.4 Pulse 80 72 74 Resp 16 17 18 B/P (MAP) 116/64 (81) 97/66 (76) 135/86 (102) Pulse Ox 94 96 100 O2 Delivery Room Air Room Air Room Air Intake and Output 01/08/20 01/08/20 01/09/20 15:00 23:00 07:00 Intake Total 1000 ml Balance 1000 ml Images EXAM: MRI Brain without IV contrast INDICATION: Memory loss and falls, 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 TECHNIQUE: Sagittal and axial T1-w and axial T2-w, FLAIR, GRE, coronal T2-w, and diffusion-w images of the brain with ADC maps without IV contrast. COMPARISON: MRI brain with and without IV contrast of 12/16/2011. Abdomen and pelvis CT with IV contrast of 05/30/2019. FINDINGS: BRAIN PARENCHYMA: No evidence of hyperacute, acute, or early subacute infarction. Tiny, punctate focus of FLAIR signal hyperintensity in the right inferior cerebellar white matter could reflect leucoariosis or artifact. Otherwise, no abnormal parenchymal signal or mass. In particular, there is no abnormal T1 shortening in the deep [place] nuclei or evidence of susceptibility artifact as might be expected with copper accumulation. VENTRICLES & EXTRA-AXIAL SPACES: Ventricles are within normal limits. Basilar cisterns are patent. No abnormal extra-axial fluid or mass. VESSELS: Normal signal voids in the larger intracranial vessels. ORBITS: Orbital contents are unremarkable. SINUSES: Paranasal sinuses are clear. Tympanic cavities and mastoid air cells are clear. OSSEOUS & SOFT TISSUES: Marrow signal is within normal limits. IMPRESSION: Unremarkable MRI of the brain without contrast. Justicifation of Admission Dx: Justifications for Admission: Justification of Admission Dx: N/A MALLORIE NOLASCO MD Jan 09, 2020 12:33
[2020-01-09] MEDS: amLODIPine BESYLATE 5 MG TABLET PO SCH (12:57)
[2020-01-09] MEDS: LOSARTAN POTASSIUM 50 MG TABLET. PO SCH (12:58)
--- NOTE | 2020-01-09 13:04 | NUR ---
ADRIAN following. Spoke with RN and reviewed chart. Discharge plan remains [facility] for acute rehab pending insurance authorization. ADRIAN phoned and faxed updated clinicals to Pauline at [facility]. Pauline to submit for authorization to [employer] today at request of this ADRIAN. Pt COVID pending. ADRIAN following. Addendum: 01/09/20 at 1428 by RITA CAMPBELL Pauline called from [facility] and pt has been decline per her insurance. Pt has no preference in provider. ADRIAN phoned and faxed referral to [facility]. ADRIAN requested [facility] submit for insurance authorization today if they can accept pt clinically. Addendum: 01/09/20 at 1553 by RITA CAMPBELL Pt accepted clinically at [facility]. Insurance authorization has been requested and is pending.
[2020-01-09 15:00] VITALS: BP 131/84
--- NOTE | 2020-01-09 16:59 | SNU/HH DC ---
DISCHARGE ORDERS DISCHARGE INFORMATION: DISCHARGE DATE: Jan 10, 2020 CONDITION ON DISCHARGE: Stable CODE STATUS: Code Status: Full PRISON: SNF STAY <30 DAYS: Yes HOSPICE: HOSPICE: No HOSPICE EVAL & TREAT: No POST DISCHARGE ORDERS: ACTIVITY ORDERS: Activity as tolerated WEIGHT BEARING STATUS: As tolerated DIET AFTER DISCHARGE: ADA CHECKS AFTER DISCHARGE: CHECKS AFTER DISCHARGE: Check blood press - daily, Check blood sugar, ac/hs, Weigh Yourself Daily TREATMENT/EQUIPMENT ORDERS: ADAPTIVE EQUIPMENT NEEDED: Four wheeled walker Physical Therapy For: Evalulation/Treatment Occupational Therapy For: Evaluation/Treatment DISCHARGE MEDICATIONS: Home Meds Reported Medications Levothyroxine Sodium (LEVOTHYROXINE SODIUM) 25 Mcg Tablet, 1 TAB PO DAILY for hypothyroid, #30 TAB 5 Refills 01/07/20 Amlodipine Besylate (AMLODIPINE BESYLATE) 5 Mg Tablet, 5 MG PO DAILY for HTN, TAB 01/07/20 Albuterol Sulfate (Proair Hfa) 8.5 Gm Hfa.aer.ad, 2 PUFF IH PRN Q4-6HRS PRN for wheezing for 21 Days, #1 INHALER 0 Refills 01/07/20 Rimegepant Sulfate (Nurtec Odt) 75 Mg Tab.rapdis, 75 MG PO PRN DAILY PRN for MIGRAINE HEADACHE, TAB 01/07/20 Ergocalciferol (Vitamin D2) (VITAMIN D2) 50,000 Unit Capsule, 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, #4 CAP 5 Refills 05/30/18 Pravastatin Sodium (PRAVASTATIN SODIUM) 20 Mg Tablet, 2 TAB PO DAILY for HLD, #30 TAB 5 Refills 05/30/18 Mupirocin (MUPIROCIN OINTMENT) 22 Gm Oint...g., 1 ABIGAIL TP BID for WOUND CARE, #1 TUBE 05/30/18 Clopidogrel Bisulfate (CLOPIDOGREL) 75 Mg Tablet, 1 TAB PO DAILY for Atrial Fibrillation, #90 TAB 1 Refill 05/30/18 Topiramate (TOPIRAMATE) 200 Mg Tablet, 75 MG PO BID for Seizures, TAB 05/30/18 Promethazine Hcl (PROMETHAZINE HCL) 25 Mg Tablet, 25 MG PO BID PRN for NAUSEA/VOMITING, TAB 05/30/18 Valsartan (DIOVAN) 160 Mg Tablet, 320 MG PO DAILY for HTN, TAB 1/23/19 Pantoprazole Sodium (PROTONIX) 20 Mg Tablet.dr, 40 MG PO DAILY for GERD, TAB 05/30/18 Hydrochlorothiazide (HYDROCHLOROTHIAZIDE TABLET) 12.5 Mg Tablet, 25 MG PO DAILY for CHF, TAB 0 Refills 05/30/18 Aspirin (ASPIRIN) 81 Mg Tab.chew, 1 TAB PO DAILY for antiplatelet, #30 TAB 3 Refills 05/30/18 Discontinued Reported Medications Lorazepam (LORAZEPAM) 1 Mg Tablet, 1 MG PO HS for Anxiety/Insomnia, TAB 05/30/18 Cyclobenzaprine Hcl (CYCLOBENZAPRINE HCL) 10 Mg Tablet, 20 MG PO HS for Muscle Relaxer, TAB 05/30/18 SAMI HATHAWAY MD Jan 09, 2020 16:59
[2020-01-09 19:00] VITALS: BP 149/90
[2020-01-09] MEDS: ATORVASTATIN CALCIUM 10 MG TABLET. PO SCH (21:45)
[2020-01-09 23:00] VITALS: BP 116/74
[2020-01-10 03:00] VITALS: BP 149/90
[2020-01-10 06:17] LABS: BASO # 0.1 x10^3/uL (0.0-0.2); BASO % 1 % (0-3); EOS # 0.3 x10^3/uL (0.0-0.7); EOS % 5 % (0-3); HEMATOCRIT 30.1 % (36.0-47.0); HEMOGLOBIN 10.4 g/dL (12.0-15.5); LYMPH # 1.5 x10^3/uL (1.0-4.8); LYMPH % 27 % (24-48); MEAN CORPUSCULAR HEMOGLOBIN 31 pg (25-35); MEAN CORPUSCULAR HGB CONC 35 g/dL (31-37); MEAN CORPUSCULAR VOLUME 88 fL (79-100); MONO # 0.3 x10^3/uL (0.0-1.1); MONO % 6 % (0-9); NEUT # 3.4 x10^3/uL (1.8-7.7); NEUT % 61 % (31-73); PLATELET COUNT 258 x10^3/uL (140-400); RED BLOOD COUNT 3.41 x10^6/uL (3.50-5.40); RED CELL DISTRIBUTION WIDTH 14.1 % (11.5-14.5); WHITE BLOOD COUNT 5.6 x10^3/uL (4.0-11.0)
[2020-01-10] MEDS: PANTOPRAZOLE 40 MG TABLET.DR. PO SCH ×2 (06:45→09:02)
[2020-01-10] MEDS: LEVOTHYROXINE 25 MCG TABLET. PO SCH (06:46)
[2020-01-10] MEDS: TOPIRAMATE 25 MG TABLET. PO SCH (07:12)
[2020-01-10 07:15] VITALS: BP 138/94
[2020-01-10] MEDS: INSULIN LISPRO 300 UNITS/3 ML VIAL. SQ SCH (08:00)
--- NOTE | 2020-01-10 08:58 | PDOC ---
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 MRI is negative for any findings of Amarjit's disease or other abnormality for that matter Gait disorder, may be just from the peripheral neuropathy Peripheral neuropathy, suspect it is diabetic History of migraine headaches History of stroke Plan Await recheck Amarjit's studies Await rest of laboratory studies, though so far are normal Rehabilitation modalities Outpatient second opinion at , no need for inpatient transfer Patient refuses group home unit, okay from me for discharge home, she will need a walker. My office already set the patient up for outpatient physical therapy Subjective Refuses group home, wants to go home, needs a roller walker Objective Vital Signs Date Time Temp Pulse Resp B/P (MAP) Pulse Ox O2 Delivery O2 Flow Rate FiO2 01/10/20 07:49 100 Room Air 01/10/20 07:15 97.9 74 16 138/94 (109) 97.9 Intake and Output 01/10/20 07:00 Intake Total 240 ml Balance 240 ml Intake Oral 240 ml # Voids 3 PHYSICAL EXAM Alert. Oriented to time, place and person. PERRL. EOMI. CN: no focal findings. Muscle tone: normal. Muscle strength: 5/5 DTR: 1+ Plantar reflex: Flexor Gait: not examined in bed. Sensory exam: Diffuse hypesthesia. No cerebellar signs elicited. No postural tremor Review of Relevant I have reviewed the following items delroy (where applicable) has been applied. Labs Laboratory Tests Test 01/08/20 11:10 01/08/20 11:33 01/08/20 12:00 01/08/20 15:05 C-Reactive Protein, Quantitative 11.5 mg/L (0-3.3) Vitamin B12 Level 344 pg/mL (247-911) Thyroid Stimulating Hormone (TSH) 3.638 uIU/mL (0.358-3.74) Glucose (Fingerstick) 46 mg/dL (70-99) 234 mg/dL (70-99) Ceruloplasmin 32.2 mg/dL (19.0-39.0) Test 01/08/20 16:50 01/08/20 20:41 01/09/20 06:20 01/09/20 07:54 Glucose (Fingerstick) 58 mg/dL (70-99) 71 mg/dL (70-99) 85 mg/dL (70-99) White Blood Count 6.0 x10^3/uL (4.0-11.0) Red Blood Count 3.44 x10^6/uL (3.50-5.40) Hemoglobin 9.9 g/dL (12.0-15.5) Hematocrit 30.5 % (36.0-47.0) Mean Corpuscular Volume 89 fL (79-100) Mean Corpuscular Hemoglobin 29 pg (25-35) Mean Corpuscular Hemoglobin Concent 33 g/dL (31-37) Red Cell Distribution Width 14.4 % (11.5-14.5) Platelet Count 277 x10^3/uL (140-400) Neutrophils (%) (Auto) 59 % (31-73) Lymphocytes (%) (Auto) 26 % (24-48) Monocytes (%) (Auto) 7 % (0-9) Eosinophils (%) (Auto) 7 % (0-3) Basophils (%) (Auto) 1 % (0-3) Neutrophils # (Auto) 3.6 x10^3/uL (1.8-7.7) Lymphocytes # (Auto) 1.5 x10^3/uL (1.0-4.8) Monocytes # (Auto) 0.4 x10^3/uL (0.0-1.1) Eosinophils # (Auto) 0.4 x10^3/uL (0.0-0.7) Basophils # (Auto) 0.1 x10^3/uL (0.0-0.2) Sodium Level 145 mmol/L (136-145) Potassium Level 3.7 mmol/L (3.5-5.1) Chloride Level 114 mmol/L (98-107) Carbon Dioxide Level 22 mmol/L (21-32) Anion Gap 9 (6-14) Blood Urea Nitrogen 18 mg/dL (7-20) Creatinine 1.0 mg/dL (0.6-1.0) Estimated GFR (Cockcroft-Gault) 57.4 Glucose Level 93 mg/dL (70-99) Calcium Level 8.3 mg/dL (8.5-10.1) Test 01/09/20 09:30 01/09/20 12:01 01/09/20 17:17 01/09/20 21:06 Coronavirus (PCR) Not detected (Not Detected) Glucose (Fingerstick) 100 mg/dL (70-99) 84 mg/dL (70-99) 81 mg/dL (70-99) Test 01/10/20 05:35 01/10/20 07:47 White Blood Count 5.6 x10^3/uL (4.0-11.0) Red Blood Count 3.41 x10^6/uL (3.50-5.40) Hemoglobin 10.4 g/dL (12.0-15.5) Hematocrit 30.1 % (36.0-47.0) Mean Corpuscular Volume 88 fL (79-100) Mean Corpuscular Hemoglobin 31 pg (25-35) Mean Corpuscular Hemoglobin Concent 35 g/dL (31-37) Red Cell Distribution Width 14.1 % (11.5-14.5) Platelet Count 258 x10^3/uL (140-400) Neutrophils (%) (Auto) 61 % (31-73) Lymphocytes (%) (Auto) 27 % (24-48) Monocytes (%) (Auto) 6 % (0-9) Eosinophils (%) (Auto) 5 % (0-3) Basophils (%) (Auto) 1 % (0-3) Neutrophils # (Auto) 3.4 x10^3/uL (1.8-7.7) Lymphocytes # (Auto) 1.5 x10^3/uL (1.0-4.8) Monocytes # (Auto) 0.3 x10^3/uL (0.0-1.1) Eosinophils # (Auto) 0.3 x10^3/uL (0.0-0.7) Basophils # (Auto) 0.1 x10^3/uL (0.0-0.2) Iron Level 68 ug/dL (50-170) Total Iron Binding Capacity 251 ug/dL (250-450) Iron Saturation 27 % (15-34) Ferritin 119 ng/mL (8-252) Glucose (Fingerstick) 77 mg/dL (70-99) Laboratory Tests Test 01/09/20 09:30 01/09/20 12:01 01/09/20 17:17 01/09/20 21:06 Coronavirus (PCR) Not detected (Not Detected) Glucose (Fingerstick) 100 mg/dL (70-99) 84 mg/dL (70-99) 81 mg/dL (70-99) Test 01/10/20 05:35 01/10/20 07:47 White Blood Count 5.6 x10^3/uL (4.0-11.0) Red Blood Count 3.41 x10^6/uL (3.50-5.40) Hemoglobin 10.4 g/dL (12.0-15.5) Hematocrit 30.1 % (36.0-47.0) Mean Corpuscular Volume 88 fL (79-100) Mean Corpuscular Hemoglobin 31 pg (25-35) Mean Corpuscular Hemoglobin Concent 35 g/dL (31-37) Red Cell Distribution Width 14.1 % (11.5-14.5) Platelet Count 258 x10^3/uL (140-400) Neutrophils (%) (Auto) 61 % (31-73) Lymphocytes (%) (Auto) 27 % (24-48) Monocytes (%) (Auto) 6 % (0-9) Eosinophils (%) (Auto) 5 % (0-3) Basophils (%) (Auto) 1 % (0-3) Neutrophils # (Auto) 3.4 x10^3/uL (1.8-7.7) Lymphocytes # (Auto) 1.5 x10^3/uL (1.0-4.8) Monocytes # (Auto) 0.3 x10^3/uL (0.0-1.1) Eosinophils # (Auto) 0.3 x10^3/uL (0.0-0.7) Basophils # (Auto) 0.1 x10^3/uL (0.0-0.2) Iron Level 68 ug/dL (50-170) Total Iron Binding Capacity 251 ug/dL (250-450) Iron Saturation 27 % (15-34) Ferritin 119 ng/mL (8-252) Glucose (Fingerstick) 77 mg/dL (70-99) Microbiology 01/07/20 Urine Culture - Final, Complete Medications Current Medications Albuterol Sulfate (Ventolin Neb Soln) 2 mg PRN Q4HRS PRN INH wheezing; Start 01/07/20 at 18:45 Amlodipine Besylate (Norvasc) 5 mg DAILY PO Last administered on 01/09/20 12:57; Start 01/08/20 at 09:00 Aspirin (Aspirin Chewable) 81 mg DAILY PO Last administered on 01/09/20 10:40; Start 01/08/20 at 09:00 Clopidogrel Bisulfate (Plavix) 75 mg DAILY PO Last administered on 01/09/20 10:40; Start 01/08/20 at 09:00 Ergocalciferol (Vitamin D2) 50,000 unit WEEKLY PO ; Start 01/14/20 at 09:00 Levothyroxine Sodium (Synthroid) 25 mcg DAILY06 PO Last administered on 01/10/20 06:46; Start 01/08/20 at 06:00 Mupirocin (Bactroban) 1 lyndsey BID TP Last administered on 01/09/20 21:45; Start 01/07/20 at 21:00 Hydrochlorothiazide (Hydrodiuril) 25 mg DAILY PO Last administered on 01/09/20 12:57; Start 01/08/20 at 09:00 Pantoprazole Sodium (Protonix) 40 mg DAILYAC PO Last administered on 01/10/20 06:45; Start 01/08/20 at 07:30 Atorvastatin Calcium (Lipitor) 10 mg QHS PO Last administered on 01/09/20 21:45; Start 01/07/20 at 21:00 Promethazine HCl (Phenergan) 25 mg PRN Q12HRS PRN PO NAUSEA/VOMITING; Start 01/07/20 at 19:00 Non-Formulary Medication (Rimegepant Sulfate (Nurtec Odt)) 75 mg PRN DAILY PRN PO MIGRAINE HEADACHE; Start 01/07/20 at 18:45; Stop 01/09/20 at 17:43; Status DC Topiramate (Topamax) 75 mg BID PO ; Start 01/07/20 at 19:00; Stop 01/07/20 at 18:48; Status DC Losartan Potassium (Cozaar) 100 mg DAILY PO Last administered on 01/09/20 12:58; Start 01/08/20 at 09:00 Lorazepam (Ativan) 0.5 mg PRN QHS PRN PO ANXIETY / AGITATION Last administered on 01/08/20 21:12; Start 01/07/20 at 18:45 Sodium Chloride 1,000 ml @ 75 mls/hr [id number] IV Last administered on 01/09/20at 23:49; Start 01/07/20 at 18:45 Insulin Human Lispro (HumaLOG) 0-5 UNITS TIDWMEALS SQ ; Start 01/08/20 at 08:00 Dextrose (Dextrose 50%-Water Syringe) 12.5 gm PRN Q15MIN PRN IV SEE COMMENTS Last administered on 01/08/20at 16:56; Start 01/07/20 at 18:45 Topiramate (Topamax) 75 mg Q12H PO Last administered on 01/10/20at 07:12; Start 01/07/20 at 19:00 Active Scripts Active Reported Levothyroxine Sodium 25 Mcg Tablet 1 Tab PO DAILY Amlodipine Besylate 5 Mg Tablet 5 Mg PO DAILY Proair Hfa (Albuterol Sulfate) 8.5 Gm Hfa.aer.ad 2 Puff IH PRN Q4-6HRS PRN 21 Days Nurtec Odt (Rimegepant Sulfate) 75 Mg Tab.rapdis 75 Mg PO PRN DAILY PRN Vitamin D2 (Ergocalciferol (Vitamin D2)) 50,000 Unit Capsule 1 Cap PO WEEKLY Pravastatin Sodium 20 Mg Tablet 2 Tab PO DAILY Mupirocin Ointment (Mupirocin) 22 Gm Oint...g. 1 Lyndsey TP BID Clopidogrel (Clopidogrel Bisulfate) 75 Mg Tablet 1 Tab PO DAILY Topiramate 200 Mg Tablet 75 Mg PO BID Promethazine Hcl 25 Mg Tablet 25 Mg PO BID PRN Diovan (Valsartan) 160 Mg Tablet 320 Mg PO DAILY Protonix (Pantoprazole Sodium) 20 Mg Tablet.dr 40 Mg PO DAILY Hydrochlorothiazide Tablet (Hydrochlorothiazide) 12.5 Mg Tablet 25 Mg PO DAILY Aspirin 81 Mg Tab.chew 1 Tab PO DAILY Vitals/I & O Vital Sign - Last 24 Hours 01/09/20 01/09/20 01/09/20 01/09/20 11:00 12:57 12:58 15:00 Temp 98.4 98.4 98.4 98.4 Pulse 74 74 74 80 Resp 18 17 B/P (MAP) 135/86 (102) 135/86 135/86 131/84 (100) Pulse Ox 100 97 O2 Delivery Room Air Room Air 01/09/20 01/09/20 01/09/20 01/10/20 19:00 19:50 23:00 03:00 Temp 97.7 97.9 97.9 97.7 97.9 97.9 Pulse 85 85 85 Resp 18 18 18 B/P (MAP) 149/90 (109) 116/74 (88) 149/90 (109) Pulse Ox 94 94 94 O2 Delivery Room Air Room Air Room Air Room Air 01/10/20 01/10/20 07:15 07:49 Temp 97.9 97.9 Pulse 74 Resp 16 B/P (MAP) 138/94 (109) Pulse Ox 100 100 O2 Delivery Room Air Room Air Intake and Output 01/09/20 01/09/20 01/10/20 15:00 23:00 07:00 Intake Total 240 ml Balance 240 ml Justicifation of Admission Dx: Justifications for Admission: Justification of Admission Dx: N/A MALLORIE NOLASCO MD Jan 10, 2020 08:58
[2020-01-10] MEDS: MUPIROCIN 2 % NASAL OINTMENT 22GM TUBE. TP SCH ×2 (09:00→09:03)
[2020-01-10] MEDS: CLOPIDOGREL BISULFATE 75 MG TABLET PO SCH (09:02)
[2020-01-10] MEDS: hydroCHLOROthiazide 25 MG TABLET PO SCH (09:02)
[2020-01-10] MEDS: ASPIRIN CHEWABLE 81 MG TABLET. PO SCH (09:02)
[2020-01-10] MEDS: LOSARTAN POTASSIUM 50 MG TABLET. PO SCH (09:03)
[2020-01-10] MEDS: amLODIPine BESYLATE 5 MG TABLET PO SCH (09:03)
--- NOTE | 2020-01-10 09:24 | PDOC ---
PROGRESS NOTES Date of Service: DATE: 01/10/20 TIME: 09:23 Subjective Subjective want to go home Objective Objective Vital Signs Date Time Temp Pulse Resp B/P (MAP) Pulse Ox O2 Delivery O2 Flow Rate FiO2 01/10/20 09:03 74 138/94 01/10/20 07:49 100 Room Air 01/10/20 07:15 97.9 16 97.9 Intake and Output 01/10/20 07:00 Intake Total 240 ml Balance 240 ml Intake Oral 240 ml # Voids 3 Physical Exam Abdomen: Soft Heart: Regular rate, Normal S1, Normal S2 Extremities: No clubbing General: Alert HEENT: Atraumatic Lungs: Clear to auscultation MUSCULOSKELETAL: No deformity Neuro: Normal speech Psych/Mental Status: Mental status NL Skin: No breakdown Assessment Assessment FINAL IMPRESSION: 1. Recurrent falls, especially her 4 falls over the weekend. 2. Amarjit disease?. 3. Hypertension. 4. Hyperlipidemia. 5. Hypothyroidism. 6. Early-onset dementia. 7. 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 Home today,out pt PT/OT COvid test neg At this time, was admitted to the hospital. Probably, needs Neurology as well as rehab. May end up going to other rehab unit or a fdc until her strength improves. PT/OT and once we get the CT, if there is no bleeding, we can give Lovenox for DVT prevention. Comment Review of Relevant I have reviewed the following items delroy (where applicable) has been applied. Labs Laboratory Tests Test 01/09/20 09:30 01/09/20 12:01 01/09/20 17:17 01/09/20 21:06 Coronavirus (PCR) Not detected (Not Detected) Glucose (Fingerstick) 100 mg/dL (70-99) 84 mg/dL (70-99) 81 mg/dL (70-99) Test 01/10/20 05:35 01/10/20 07:47 White Blood Count 5.6 x10^3/uL (4.0-11.0) Red Blood Count 3.41 x10^6/uL (3.50-5.40) Hemoglobin 10.4 g/dL (12.0-15.5) Hematocrit 30.1 % (36.0-47.0) Mean Corpuscular Volume 88 fL (79-100) Mean Corpuscular Hemoglobin 31 pg (25-35) Mean Corpuscular Hemoglobin Concent 35 g/dL (31-37) Red Cell Distribution Width 14.1 % (11.5-14.5) Platelet Count 258 x10^3/uL (140-400) Neutrophils (%) (Auto) 61 % (31-73) Lymphocytes (%) (Auto) 27 % (24-48) Monocytes (%) (Auto) 6 % (0-9) Eosinophils (%) (Auto) 5 % (0-3) Basophils (%) (Auto) 1 % (0-3) Neutrophils # (Auto) 3.4 x10^3/uL (1.8-7.7) Lymphocytes # (Auto) 1.5 x10^3/uL (1.0-4.8) Monocytes # (Auto) 0.3 x10^3/uL (0.0-1.1) Eosinophils # (Auto) 0.3 x10^3/uL (0.0-0.7) Basophils # (Auto) 0.1 x10^3/uL (0.0-0.2) Iron Level 68 ug/dL (50-170) Total Iron Binding Capacity 251 ug/dL (250-450) Iron Saturation 27 % (15-34) Ferritin 119 ng/mL (8-252) Glucose (Fingerstick) 77 mg/dL (70-99) Microbiology 01/07/20 Urine Culture - Final, Complete Medications Current Medications Ergocalciferol (Vitamin D2) 50,000 unit WEEKLY PO ; Start 01/14/20 at 09:00 Vitals/I & O Vital Sign - Last 24 Hours 01/09/20 01/09/20 01/09/20 01/09/20 11:00 12:57 12:58 15:00 Temp 98.4 98.4 98.4 98.4 Pulse 74 74 74 80 Resp 18 17 B/P (MAP) 135/86 (102) 135/86 135/86 131/84 (100) Pulse Ox 100 97 O2 Delivery Room Air Room Air 01/09/20 01/09/20 01/09/20 01/10/20 19:00 19:50 23:00 03:00 Temp 97.7 97.9 97.9 97.7 97.9 97.9 Pulse 85 85 85 Resp 18 18 18 B/P (MAP) 149/90 (109) 116/74 (88) 149/90 (109) Pulse Ox 94 94 94 O2 Delivery Room Air Room Air Room Air Room Air 01/10/20 01/10/20 01/10/20 01/10/20 07:15 07:49 09:03 09:03 Temp 97.9 97.9 Pulse 74 74 74 Resp 16 B/P (MAP) 138/94 (109) 138/94 138/94 Pulse Ox 100 100 O2 Delivery Room Air Room Air Intake and Output 01/09/20 01/09/20 01/10/20 15:00 23:00 07:00 Intake Total 240 ml Balance 240 ml Justifications for Admission Other Justification SAMI HATHAWAY MD Jan 10, 2020 09:24
[2020-01-10 11:05] VITALS: BP 125/81
--- NOTE | 2020-01-10 13:40 | PDOC ---
PROGRESS NOTES Date of Service DATE: 01/10/20 TIME: 13:37 Subjective Subjective She feels better and going home later on today. Objective Objective Vital Signs Date Time Temp Pulse Resp B/P (MAP) Pulse Ox O2 Delivery O2 Flow Rate FiO2 01/10/20 11:05 97.7 83 16 125/81 (96) 98 Room Air 97.7 Intake and Output 01/10/20 07:00 Intake Total 240 ml Balance 240 ml Intake Oral 240 ml # Voids 3 Physical Exam Physical Exam She is walking independently with roller walker and she denies any significant neck or back pain but had 300 ml+ urine residual and she admits that she does straight cath herself at home. Plan Plan of Care I gave her a prescription for flomax 0.5 mg for her to try. Comment Review of Relevant I have reviewed the following items delroy (where applicable) has been applied. Labs Laboratory Tests Test 01/08/20 15:05 01/08/20 16:50 01/08/20 20:41 01/09/20 06:20 Ceruloplasmin 32.2 mg/dL (19.0-39.0) Glucose (Fingerstick) 58 mg/dL (70-99) 71 mg/dL (70-99) White Blood Count 6.0 x10^3/uL (4.0-11.0) Red Blood Count 3.44 x10^6/uL (3.50-5.40) Hemoglobin 9.9 g/dL (12.0-15.5) Hematocrit 30.5 % (36.0-47.0) Mean Corpuscular Volume 89 fL (79-100) Mean Corpuscular Hemoglobin 29 pg (25-35) Mean Corpuscular Hemoglobin Concent 33 g/dL (31-37) Red Cell Distribution Width 14.4 % (11.5-14.5) Platelet Count 277 x10^3/uL (140-400) Neutrophils (%) (Auto) 59 % (31-73) Lymphocytes (%) (Auto) 26 % (24-48) Monocytes (%) (Auto) 7 % (0-9) Eosinophils (%) (Auto) 7 % (0-3) Basophils (%) (Auto) 1 % (0-3) Neutrophils # (Auto) 3.6 x10^3/uL (1.8-7.7) Lymphocytes # (Auto) 1.5 x10^3/uL (1.0-4.8) Monocytes # (Auto) 0.4 x10^3/uL (0.0-1.1) Eosinophils # (Auto) 0.4 x10^3/uL (0.0-0.7) Basophils # (Auto) 0.1 x10^3/uL (0.0-0.2) Sodium Level 145 mmol/L (136-145) Potassium Level 3.7 mmol/L (3.5-5.1) Chloride Level 114 mmol/L (98-107) Carbon Dioxide Level 22 mmol/L (21-32) Anion Gap 9 (6-14) Blood Urea Nitrogen 18 mg/dL (7-20) Creatinine 1.0 mg/dL (0.6-1.0) Estimated GFR (Cockcroft-Gault) 57.4 Glucose Level 93 mg/dL (70-99) Calcium Level 8.3 mg/dL (8.5-10.1) Test 01/09/20 07:54 01/09/20 09:30 01/09/20 12:01 01/09/20 17:17 Glucose (Fingerstick) 85 mg/dL (70-99) 100 mg/dL (70-99) 84 mg/dL (70-99) Coronavirus (PCR) Not detected (Not Detected) Test 01/09/20 21:06 01/10/20 05:35 01/10/20 07:47 01/10/20 11:54 Glucose (Fingerstick) 81 mg/dL (70-99) 77 mg/dL (70-99) 114 mg/dL (70-99) White Blood Count 5.6 x10^3/uL (4.0-11.0) Red Blood Count 3.41 x10^6/uL (3.50-5.40) Hemoglobin 10.4 g/dL (12.0-15.5) Hematocrit 30.1 % (36.0-47.0) Mean Corpuscular Volume 88 fL (79-100) Mean Corpuscular Hemoglobin 31 pg (25-35) Mean Corpuscular Hemoglobin Concent 35 g/dL (31-37) Red Cell Distribution Width 14.1 % (11.5-14.5) Platelet Count 258 x10^3/uL (140-400) Neutrophils (%) (Auto) 61 % (31-73) Lymphocytes (%) (Auto) 27 % (24-48) Monocytes (%) (Auto) 6 % (0-9) Eosinophils (%) (Auto) 5 % (0-3) Basophils (%) (Auto) 1 % (0-3) Neutrophils # (Auto) 3.4 x10^3/uL (1.8-7.7) Lymphocytes # (Auto) 1.5 x10^3/uL (1.0-4.8) Monocytes # (Auto) 0.3 x10^3/uL (0.0-1.1) Eosinophils # (Auto) 0.3 x10^3/uL (0.0-0.7) Basophils # (Auto) 0.1 x10^3/uL (0.0-0.2) Iron Level 68 ug/dL (50-170) Total Iron Binding Capacity 251 ug/dL (250-450) Iron Saturation 27 % (15-34) Ferritin 119 ng/mL (8-252) Laboratory Tests Test 01/09/20 17:17 01/09/20 21:06 01/10/20 05:35 01/10/20 07:47 Glucose (Fingerstick) 84 mg/dL (70-99) 81 mg/dL (70-99) 77 mg/dL (70-99) White Blood Count 5.6 x10^3/uL (4.0-11.0) Red Blood Count 3.41 x10^6/uL (3.50-5.40) Hemoglobin 10.4 g/dL (12.0-15.5) Hematocrit 30.1 % (36.0-47.0) Mean Corpuscular Volume 88 fL (79-100) Mean Corpuscular Hemoglobin 31 pg (25-35) Mean Corpuscular Hemoglobin Concent 35 g/dL (31-37) Red Cell Distribution Width 14.1 % (11.5-14.5) Platelet Count 258 x10^3/uL (140-400) Neutrophils (%) (Auto) 61 % (31-73) Lymphocytes (%) (Auto) 27 % (24-48) Monocytes (%) (Auto) 6 % (0-9) Eosinophils (%) (Auto) 5 % (0-3) Basophils (%) (Auto) 1 % (0-3) Neutrophils # (Auto) 3.4 x10^3/uL (1.8-7.7) Lymphocytes # (Auto) 1.5 x10^3/uL (1.0-4.8) Monocytes # (Auto) 0.3 x10^3/uL (0.0-1.1) Eosinophils # (Auto) 0.3 x10^3/uL (0.0-0.7) Basophils # (Auto) 0.1 x10^3/uL (0.0-0.2) Iron Level 68 ug/dL (50-170) Total Iron Binding Capacity 251 ug/dL (250-450) Iron Saturation 27 % (15-34) Ferritin 119 ng/mL (8-252) Test 01/10/20 11:54 Glucose (Fingerstick) 114 mg/dL (70-99) Microbiology 01/07/20 Urine Culture - Final, Complete Medications Current Medications Albuterol Sulfate (Ventolin Neb Soln) 2 mg PRN Q4HRS PRN INH wheezing; Start 01/07/20 at 18:45 Amlodipine Besylate (Norvasc) 5 mg DAILY PO Last administered on 01/10/20at 09:03; Start 01/08/20 at 09:00 Aspirin (Aspirin Chewable) 81 mg DAILY PO Last administered on 01/10/20at 09:02; Start 01/08/20 at 09:00 Clopidogrel Bisulfate (Plavix) 75 mg DAILY PO Last administered on 01/10/20at 09:02; Start 01/08/20 at 09:00 Ergocalciferol (Vitamin D2) 50,000 unit WEEKLY PO ; Start 01/14/20 at 09:00 Levothyroxine Sodium (Synthroid) 25 mcg DAILY06 PO Last administered on 01/10/20at 06:46; Start 01/08/20 at 06:00 Mupirocin (Bactroban) 1 lyndsey BID TP Last administered on 01/09/20at 21:45; Start 01/07/20 at 21:00 Hydrochlorothiazide (Hydrodiuril) 25 mg DAILY PO Last administered on 01/10/20at 09:02; Start 01/08/20 at 09:00 Pantoprazole Sodium (Protonix) 40 mg DAILYAC PO Last administered on 01/10/20at 06:45; Start 01/08/20 at 07:30 Atorvastatin Calcium (Lipitor) 10 mg QHS PO Last administered on 01/09/20at 21:45; Start 01/07/20 at 21:00 Promethazine HCl (Phenergan) 25 mg PRN Q12HRS PRN PO NAUSEA/VOMITING; Start 01/07/20 at 19:00 Non-Formulary Medication (Rimegepant Sulfate (Nurtec Odt)) 75 mg PRN DAILY PRN PO MIGRAINE HEADACHE; Start 01/07/20 at 18:45; Stop 01/09/20 at 17:43; Status DC Topiramate (Topamax) 75 mg BID PO ; Start 01/07/20 at 19:00; Stop 01/07/20 at 18:48; Status DC Losartan Potassium (Cozaar) 100 mg DAILY PO Last administered on 01/10/20at 09:03; Start 01/08/20 at 09:00 Lorazepam (Ativan) 0.5 mg PRN QHS PRN PO ANXIETY / AGITATION Last administered on 01/08/20at 21:12; Start 01/07/20 at 18:45 Sodium Chloride 1,000 ml @ 75 mls/hr [id number] IV Last administered on 01/09/20at 23:49; Start 01/07/20 at 18:45; Stop 01/10/20 at 09:22; Status DC Insulin Human Lispro (HumaLOG) 0-5 UNITS TIDWMEALS SQ ; Start 01/08/20 at 08:00 Dextrose (Dextrose 50%-Water Syringe) 12.5 gm PRN Q15MIN PRN IV SEE COMMENTS Last administered on 01/08/20at 16:56; Start 01/07/20 at 18:45 Topiramate (Topamax) 75 mg Q12H PO Last administered on 01/10/20at 07:12; Start 01/07/20 at 19:00 Active Scripts Active Reported Levothyroxine Sodium 25 Mcg Tablet 1 Tab PO DAILY Amlodipine Besylate 5 Mg Tablet 5 Mg PO DAILY Proair Hfa (Albuterol Sulfate) 8.5 Gm Hfa.aer.ad 2 Puff IH PRN Q4-6HRS PRN 21 Days Nurtec Odt (Rimegepant Sulfate) 75 Mg Tab.rapdis 75 Mg PO PRN DAILY PRN Vitamin D2 (Ergocalciferol (Vitamin D2)) 50,000 Unit Capsule 1 Cap PO WEEKLY Pravastatin Sodium 20 Mg Tablet 2 Tab PO DAILY Mupirocin Ointment (Mupirocin) 22 Gm Oint...g. 1 Lyndsey TP BID Clopidogrel (Clopidogrel Bisulfate) 75 Mg Tablet 1 Tab PO DAILY Topiramate 200 Mg Tablet 75 Mg PO BID Promethazine Hcl 25 Mg Tablet 25 Mg PO BID PRN Diovan (Valsartan) 160 Mg Tablet 320 Mg PO DAILY Protonix (Pantoprazole Sodium) 20 Mg Tablet.dr 40 Mg PO DAILY Hydrochlorothiazide Tablet (Hydrochlorothiazide) 12.5 Mg Tablet 25 Mg PO DAILY Aspirin 81 Mg Tab.chew 1 Tab PO DAILY Vitals/I & O Vital Sign - Last 24 Hours 01/09/20 01/09/20 01/09/20 01/09/20 15:00 19:00 19:50 23:00 Temp 98.4 97.7 97.9 98.4 97.7 97.9 Pulse 80 85 85 Resp 17 18 18 B/P (MAP) 131/84 (100) 149/90 (109) 116/74 (88) Pulse Ox 97 94 94 O2 Delivery Room Air Room Air Room Air Room Air 01/10/20 01/10/20 01/10/20 01/10/20 03:00 07:15 07:49 09:03 Temp 97.9 97.9 97.9 97.9 Pulse 85 74 74 Resp 18 16 B/P (MAP) 149/90 (109) 138/94 (109) 138/94 Pulse Ox 94 100 100 O2 Delivery Room Air Room Air Room Air 01/10/20 01/10/20 09:03 11:05 Temp 97.7 97.7 Pulse 74 83 Resp 16 B/P (MAP) 138/94 125/81 (96) Pulse Ox 98 O2 Delivery Room Air Intake and Output 01/09/20 01/09/20 01/10/20 15:00 23:00 07:00 Intake Total 240 ml Balance 240 ml Justifications for Admission Other Justification ALDA SMALL MD Jan 10, 2020 13:40
[2020-01-10 15:13] LABS: ALBUM 3.1 g/dL (2.9-4.4); ALPHA 1 0.2 g/dL (0.0-0.4); ALPHA 2 1.1 g/dL (0.4-1.0); BETA 0.8 g/dL (0.7-1.3); GAMMA 0.5 g/dL (0.4-1.8); PROTEIN TOTAL 5.7 g/dL (6.0-8.5); SPEP AG RATIO 1.2 (0.7-1.7)
--- NOTE | 2020-01-10 15:38 | NUR ---
SW following. Spoke with RN and reviewed chart. Pt to discharge home today self-care. Pt changed her mind about acute rehab at discharge. SW notified [facility] and they will cancel authorization request to pt's insurance. Spoke with pt who stated she has a PCP appointment next week and will resume out-patient PT/OT at [facility] on discharge (script to be provided by PCP if needed). Pt stated she has the ability to get a walker and declined a $20 walker from the nursing banquet supervisor. No further SW needs at this time.
--- NOTE | 2020-01-10 16:16 | NUR ---
pt discharged home with family. meds and follow up reviewed. pt provided with a print out of lab work to show covid negative test results. pt stable upon dc. IV removed, cath intact.
[2020-01-10 19:10] LABS: ANA INTERP Negative (.)
[2020-01-10] MEDS ORDERED: TAMSULOSIN 0.4 MG CAP.ER.24H. PO SCH (21:00)
[2020-01-14] MEDS ORDERED: ERGOCALCIFEROL (VITAMIN D2) 50,000 UNIT CAPSULE. PO SCH (09:00)
--- NOTE | 2020-01-14 11:29 | PDOC ---
Provider Note Date of Service: DATE: 01/14/20 TIME: 11:28 Provider Note Discharge summary dictated.#[id number]. Justifications for Admission Other Justification SAMI HATHAWAY MD Jan 14, 2020 11:29
--- NOTE | 2020-01-14 11:52 | DS ---
DATE OF DISCHARGE: 01/10/2020 REASON FOR ADMISSION TO THE HOSPITAL: Recurrent falls, weakness. CONSULTATIONS: Neurology, Dr. Foley; Rehab, Dr. Oconnor. PROCEDURES DONE: MRI of the brain. HOSPITAL COURSE: The patient is a 54-year-old female. She has early dementia and there was questionable Amarjit's disease, abnormal hypermetabolism. The patient had falls, 4 falls in over the weekend and was admitted to the hospital for weakness, was seen by Dr. Oconnor, Rehab and Dr. Huber, Neurology. Had a MRI of the brain without IV contrast unremarkable and the patient had some special studies. Immunoelectrophoresis was negative. Ceruloplasmin 32 normal range. Copper 157, normal range and immunology, CHELLE was negative and the patient was on Ativan before and muscle relaxers, which was stopped. Her mental condition improved and she was seen by Physical Therapy, ambulating with a walker. She was recommended discharge go to [facility], but she wants to go home. The patient was discharged home with home health. FINAL DIAGNOSES: 1. Multiple falls. 2. There is questionable diagnosis of Amarjit's disease, but all the parameters does not look like Amarjit's disease. 3. Hypertension. 4. Diabetes. 5. Early dementia. DISPOSITION: Home. DISCHARGE MEDICATIONS: See [facility] for discharge medications. DISCHARGE INSTRUCTIONS: Follow with Neurology outpatient. Outpatient physical therapy with a walker. SAMI HATHAWAY MD DR: IVONNE/eriberto JOB#: [id number] / [id number] JENNIFER
== END 2020-01-10 16:19 | disposition home or self-care (01) | DRG 72 ==
LOC: 5 NORTH 17:22
PROVIDERS: ADMIT Internal Medicine; ATTEND Internal Medicine
DX: G93.41 Metabolic encephalopathy (principal); E83.01 Wilson's disease; R29.6 Repeated falls; Z20.828 Contact with and (suspected) exposure to other viral communicable diseases; G43.909 Migraine, unspecified, not intractable, without status migrainosus; F41.9 Anxiety disorder, unspecified; F32.9 Major depressive disorder, single episode, unspecified; E11.22 Type 2 diabetes mellitus with diabetic chronic kidney disease; I12.9 Hypertensive chronic kidney disease with stage 1 through stage 4 chronic kidney disease, or unspecified chronic kidney disease; N18.9 Chronic kidney disease, unspecified; F03.90 Unspecified dementia, unspecified severity, without behavioral disturbance, psychotic disturbance, mood disturbance, and anxiety; E78.5 Hyperlipidemia, unspecified; E03.9 Hypothyroidism, unspecified; K21.9 Gastro-esophageal reflux disease without esophagitis; D64.9 Anemia, unspecified; E11.40 Type 2 diabetes mellitus with diabetic neuropathy, unspecified; Z88.5 Allergy status to narcotic agent; Z88.8 Allergy status to other drugs, medicaments and biological substances; Z90.710 Acquired absence of both cervix and uterus; Z86.73 Personal history of transient ischemic attack (TIA), and cerebral infarction without residual deficits; Z80.9 Family history of malignant neoplasm, unspecified; Z83.3 Family history of diabetes mellitus; Z82.49 Family history of ischemic heart disease and other diseases of the circulatory system
CPT/HCPCS: 36415; 70551; 71045; 80048; 80053; 81001; 82390; 82525; 82607; 82728; 82962; 83540; 83550; 84165; 84443; 85025; 86038; 86140; 87086; 94760; J7030; 97530-GO; 97530-GP; 97535-GO; G0378; U0003-CS

== ENCOUNTER → 2020-02-10 | Outpatient (CLI) | payer OTHER, MEDICARE ==
[~2020-02-10] MED LIST changes: +ALBU2.5V8 IH; +AMLO5TAB10 PO; +LEVO25TA4 PO; +RIME75TA PO
[2020-02-10 14:10] LABS: CREATININE,RANDOM URINE 30.5 mg/dL (Not Establ.)
[2020-02-10 14:22] LABS: GFR 57.4; PHOSPHORUS 3.1 mg/dL (2.6-4.7); POTASSIUM 3.7 mmol/L (3.5-5.1)
[2020-02-11 01:08] LABS: CREAT RD UR 43.5 mg/dL (Not Estab.); MICRO CREAT RATIO <7 mg/g creat (0-29); MICROALB RD UR <3.0 ug/mL (Not Estab.)
== END | disposition home or self-care (01) ==
LOC: LAB 13:32
PROVIDERS: ATTEND Internal Medicine Nephrology
DX: I12.9 Hypertensive chronic kidney disease with stage 1 through stage 4 chronic kidney disease, or unspecified chronic kidney disease (principal); N17.9 Acute kidney failure, unspecified; E11.21 Type 2 diabetes mellitus with diabetic nephropathy; E87.6 Hypokalemia; E55.9 Vitamin D deficiency, unspecified; D50.9 Iron deficiency anemia, unspecified; M81.0 Age-related osteoporosis without current pathological fracture; I48.0 Paroxysmal atrial fibrillation
CPT/HCPCS: 80069; 82043; 82570; 84156

== ENCOUNTER → 2020-05-19 | Outpatient (CLI) | payer OTHER, MEDICARE ==
[~2020-05-19] MED LIST changes: +AMLO-186 PO; -AMLO5TAB10 PO
[2020-05-19 15:35] LABS: HEMATOCRIT 40.2 % (36.0-47.0); HEMOGLOBIN 13.5 g/dL (12.0-15.5)
[2020-05-19 15:56] LABS: ALBUMIN 3.5 g/dL (3.4-5.0); CALCIUM 9.5 mg/dL (8.5-10.1); CREATININE 1.2 mg/dL (0.6-1.0); GFR 46.5; PHOSPHORUS 3.7 mg/dL (2.6-4.7); POTASSIUM 3.7 mmol/L (3.5-5.1)
[2020-05-20 07:17] LABS: CALCIUM PTH 9.8 mg/dL (8.7-10.2); PHOSPHORUS PTH 3.6 mg/dL (3.0-4.3); PTH INTACT 77 pg/mL (15-65)
== END ==
LOC: LAB 15:12
PROVIDERS: ATTEND Internal Medicine Nephrology
DX: N17.9 Acute kidney failure, unspecified (principal); I12.9 Hypertensive chronic kidney disease with stage 1 through stage 4 chronic kidney disease, or unspecified chronic kidney disease; E11.22 Type 2 diabetes mellitus with diabetic chronic kidney disease; N18.31 Chronic kidney disease, stage 3a; N31.9 Neuromuscular dysfunction of bladder, unspecified; E11.21 Type 2 diabetes mellitus with diabetic nephropathy; E55.9 Vitamin D deficiency, unspecified; M81.0 Age-related osteoporosis without current pathological fracture; D50.9 Iron deficiency anemia, unspecified; I48.0 Paroxysmal atrial fibrillation; E87.6 Hypokalemia; Z68.32 Body mass index [BMI] 32.0-32.9, adult
CPT/HCPCS: 36415; 80069; 82306; 83970; 85014; 85018